=== PATIENT | female | born 1960 | race Caucasian/White ===

== ENCOUNTER → 2016-11-26 | Outpatient (CLI) | payer OTHER ==
[~2016-11-26] MED LIST: ASPI81CH CHEW; FURO20TA PO; HYZA100T2 PO; MULTTAB67 PO; NOVOLOGP2 SQ
[2016-11-26 10:02] LABS: ANION GAP 3 MEQ/L (5-15); BICARBONATE 37.9 MEQ/L (21.0-32.0); BLOOD UREA NITROGEN 18 MG/DL (7-18); CHLORIDE 101 MEQ/L (98-107); GLOMERULAR FILTRATION RATE 63 ML/MIN (>89); GLUCOSE,FASTING 74 MG/DL (74-99); POTASSIUM 3.5 MEQ/L (3.5-5.1); SODIUM (NA) 142 MEQ/L (136-145)
[2016-11-26 16:57] LABS: HEMOGLOBIN A1a 0.8 %; HEMOGLOBIN A1b 0.8 %; HEMOGLOBIN Ao 82.8 %; HEMOGLOBIN F 1.1 %; HEMOGLOBIN P3 4.3 %
== END ==
LOC: CLAB 09:10
DX: E10.65 Type 1 diabetes mellitus with hyperglycemia (principal)
CPT/HCPCS: 36415; 80048; 83036

== ENCOUNTER → 2017-02-06 | Outpatient (CLI) | payer OTHER ==
[2017-02-06 10:53] LABS: ALKALINE PHOSPHATASE 66 U/L (45-117); ALT (GPT) 35 U/L (10-53); ANION GAP 8 MEQ/L (5-15); AST (GOT) 19 U/L (15-37); BLOOD UREA NITROGEN 21 MG/DL (7-18); CHLORIDE 104 MEQ/L (98-107); GLOMERULAR FILTRATION RATE 84 ML/MIN (>89); GLUCOSE,FASTING 156 MG/DL (74-99); HDL CHOLESTEROL 83.8 MG/DL (40.0-60.0); LDL CHOLESTEROL 33 MG/DL (0-99); POTASSIUM 3.9 MEQ/L (3.5-5.1); SODIUM (NA) 144 MEQ/L (136-145); TOTAL BILIRUBIN ADULT 0.4 MG/DL (0.2-1.0)
[2017-02-06 14:20] LABS: HEMOGLOBIN A1a 1.1 %; HEMOGLOBIN A1b 1.9 %; HEMOGLOBIN Ao 81.8 %; HEMOGLOBIN LA1C 2.8 %; HEMOGLOBIN P3 4.5 %
== END ==
LOC: CLAB 09:26
PROVIDERS: ATTEND Internal Medicine
DX: I25.10 Atherosclerotic heart disease of native coronary artery without angina pectoris (principal); E10.9 Type 1 diabetes mellitus without complications; I10 Essential (primary) hypertension
CPT/HCPCS: 36415; 80053; 80061; 83036; 84443

== ENCOUNTER → 2017-08-04 | Outpatient (CLI) | payer OTHER ==
[~2017-08-04] MED LIST changes: +ASPI-516 CHEW; -ASPI81CH CHEW; +LIPI40TA PO
[2017-08-04 07:41] LABS: BICARBONATE 32.5 MEQ/L (21.0-32.0); POTASSIUM 3.6 MEQ/L (3.5-5.1)
== END ==
LOC: CLAB 06:41
DX: E10.65 Type 1 diabetes mellitus with hyperglycemia (principal)
CPT/HCPCS: 36415; 80048

== ENCOUNTER → 2017-10-28 | Outpatient (CLI) | payer OTHER ==
[2017-10-28 09:00] LABS: ALBUMIN 3.8 GM/DL (3.4-5.0); AST (GOT) 17 U/L (15-37); BICARBONATE 32.8 MEQ/L (21.0-32.0); BLOOD UREA NITROGEN 24 MG/DL (7-18); CALCIUM 9.4 MG/DL (8.5-10.1); CHLORIDE 101 MEQ/L (98-107); CREATININE 0.83 MG/DL (0.50-1.00); GLOMERULAR FILTRATION RATE 71 ML/MIN (>89); GLUCOSE,FASTING 151 MG/DL (74-99); SODIUM (NA) 140 MEQ/L (136-145)
[2017-10-28 09:01] LABS: ALT (GPT) 26 U/L (10-53)
[2017-10-28 09:27] LABS: ALKALINE PHOSPHATASE 64 U/L (45-117); FREE T4 1.08 NG/DL (0.76-1.46); TOTAL BILIRUBIN ADULT 0.6 MG/DL (0.2-1.0); TOTAL PROTEIN 6.9 GM/DL (6.4-8.2)
[2017-10-28 16:16] LABS: HEMOGLOBIN A1C 8.5 % (4.3-6.0)
== END ==
LOC: CLAB 07:22
PROVIDERS: ATTEND Internal Medicine Endocrinology, Diabetes & Metabolism
DX: E10.65 Type 1 diabetes mellitus with hyperglycemia (principal); D51.9 Vitamin B12 deficiency anemia, unspecified
CPT/HCPCS: 36415; 80053; 82043; 82607; 83036; 84378; 84439; 84443

== ENCOUNTER → 2018-01-26 | Outpatient (CLI) | payer OTHER ==
[2018-01-26 09:07] LABS: BICARBONATE 33.2 MEQ/L (21.0-32.0); BLOOD UREA NITROGEN 25 MG/DL (7-18); CALCIUM 8.8 MG/DL (8.5-10.1); CHLORIDE 106 MEQ/L (98-107); CREATININE 0.92 MG/DL (0.50-1.00); GLOMERULAR FILTRATION RATE 63 ML/MIN (>89); GLUCOSE,FASTING 100 MG/DL (74-99); SODIUM (NA) 144 MEQ/L (136-145)
[2018-01-26 16:25] LABS: HEMOGLOBIN A1C 7.3 % (4.3-6.0)
== END ==
LOC: CLAB 08:16
PROVIDERS: ATTEND Internal Medicine Endocrinology, Diabetes & Metabolism
DX: E10.65 Type 1 diabetes mellitus with hyperglycemia (principal)
CPT/HCPCS: 36415; 80048; 83036; 84378

== ENCOUNTER → 2018-03-10 | Outpatient (CLI) | payer OTHER ==
[2018-03-10 07:58] LABS: AUTOMATED NEUTROPHIL # 2.3 TH/MM3 (1.8-7.7); BASOPHIL % 0.7 % (0.0-2.0); EOSINOPHIL # 0.1 TH/MM3 (0-0.4); EOSINOPHIL % 1.9 % (0.0-4.0); HEMATOCRIT 44.2 % (35.0-46.0); LYMPH % 37.2 % (9.0-44.0); LYMPHOCYTE # 1.6 TH/MM3 (1.0-4.8); MEAN CELL VOLUME 84.6 FL (80.0-100.0); MEAN CORPUSCULAR HEMOGLOBIN 28.8 PG (27.0-34.0); MEAN PLATELET VOLUME 10.5 FL (7.0-11.0); MONO % 7.5 % (0.0-8.0); MONOCYTE # 0.3 TH/MM3 (0-0.9); NEUT % 52.7 % (16.0-70.0); PLATELET COUNT 181 TH/MM3 (150-450); RED BLOOD COUNT 5.23 MIL/MM3 (4.00-5.30); RED CELL DISTRIBUTION WIDTH 13.1 % (11.6-17.2); WHITE BLOOD COUNT 4.3 TH/MM3 (4.0-11.0)
[2018-03-10 08:16] LABS: BILIRUBIN, URINE NEG (NEG); BLOOD, URINE NEG (NEG); GLUCOSE,URINE NEG (NEG); HYALINE CAST, URINE 4 /lpf (RARE); KETONE, URINE TRACE mg/dL (NEG); MUCUS URINE MOD /lpf (OCC); NITRITE,URINE NEG (NEG); SQUAMOUS EPITHELIAL CELL URINE 2 /hpf (0-5); URINE COLOR YELLOW (YELLW/STRAW); URINE LEUKOCYTE ESTERASE TRACE (NEG)
[2018-03-10 08:25] LABS: ALBUMIN 3.9 GM/DL (3.4-5.0); AST (GOT) 22 U/L (15-37); BICARBONATE 32.2 MEQ/L (21.0-32.0); BLOOD UREA NITROGEN 19 MG/DL (7-18); CALCIUM 9.2 MG/DL (8.5-10.1); CHLORIDE 100 MEQ/L (98-107); CREATININE 0.96 MG/DL (0.50-1.00); GLOMERULAR FILTRATION RATE 60 ML/MIN (>89); GLUCOSE,FASTING 87 MG/DL (74-99); SODIUM (NA) 141 MEQ/L (136-145)
[2018-03-10 08:26] LABS: ALT (GPT) 26 U/L (10-53); CHOLESTEROL 141 MG/DL (120-200); TRIGLYCERIDES 52 MG/DL (42-150)
[2018-03-10 08:36] LABS: ALKALINE PHOSPHATASE 67 U/L (45-117); CHOLESTEROL/ HDL RATIO 1.91 RATIO; HDL CHOLESTEROL 73.8 MG/DL (40.0-60.0); LDL CHOLESTEROL 57 MG/DL (0-99); TOTAL BILIRUBIN ADULT 0.5 MG/DL (0.2-1.0); TOTAL PROTEIN 6.9 GM/DL (6.4-8.2)
[2018-03-10 18:03] LABS: HEMOGLOBIN A1C 6.6 % (4.3-6.0)
== END ==
LOC: CLAB 07:27
PROVIDERS: ATTEND Internal Medicine
DX: E78.00 Pure hypercholesterolemia, unspecified (principal); I25.10 Atherosclerotic heart disease of native coronary artery without angina pectoris; I10 Essential (primary) hypertension; E10.65 Type 1 diabetes mellitus with hyperglycemia
CPT/HCPCS: 36415; 80053; 80061; 81001; 82043; 83036; 84378; 84443; 85025

== ENCOUNTER 2018-07-30 13:29 | Observation (INO) ==
--- NOTE | 2018-07-30 14:38 | XR ---
EXAM DATE: 07/30/2018 2:23 PM EST AGE/SEX: 57 years / Female INDICATIONS: Chest pain and shortness of breath. CLINICAL DATA: This is the patient's initial encounter. Patient reports that signs and symptoms have been present for 1 day and indicates a pain score of 5/10. MEDICAL/SURGICAL HISTORY: . Diabetes mellitus type II. . section. Cardiac stent x 3 COMPARISON: [facility] [place], CHEST SINGLE AP, 09/07/2016. . FINDINGS: A single AP view of the chest demonstrates the lungs to be symmetrically aerated without evidence of mass, infiltrate or effusion. The cardiomediastinal contours are unremarkable. Osseous structures a re intact. CONCLUSION: 1. No acute cardiopulmonary disease. Electronically signed by: Severino Gatica MD 07/30/2018 2:37 PM EST
--- NOTE | 2018-07-30 16:52 | ED ---
HPI General Chief Complaint: Chest Pain Stated Complaint: Chest Pressure/Shoulder Pain/Weakness Complaint Time Seen by Provider: 07/30/18 16:22 Source: patient Mode of arrival: ambulatory Limitations: no limitations History of Present Illness HPI narrative: 57-year-old female with PMH of type I DM with implanted insulin pump, CAD status post stenting x3, HTN presents the ED for evaluation of 6/10 anterior chest heaviness and palpitations. Patient states the sensation radiates between the shoulder blades. She also endorses sensation of pulsations in the neck with dull global headache. Headache now resolved. She states these symptoms came on gradually during the course the day. She states that she was feeling completely normal at bedtime last night. She states her blood glucose was "normal" this morning but over the course of the day has gradually risen into the low 300s. She denies dizziness, vision changes, shortness of breath, cough, abdominal pain, changes in bowel habits, dysuria, lower extremity edema. She endorses compliance with her daily medications including an 81 mg aspirin. She states that she walked a total of approximately 2 miles during the course of her normal day today. 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 No treatment attempted before arrival. She is a non-smoker. She denies recent history of immobilization. She does not use OC. She is followed by Dr. Henao, cardiology. Related Data Home Medications Medication Instructions Recorded Confirmed atorvastatin [Lipitor] 40 mg PO DAILY 07/30/18 07/30/18 furosemide [Lasix] 20 mg PO DAILY 07/30/18 07/30/18 insulin aspart U-100 [Novolog 1 sliding scale dose SUBCUT UD 07/30/18 07/30/18 U-100 Insulin aspart] losartan-hydrochlorothiazide 1 tab PO DAILY 07/30/18 07/30/18 [Hyzaar] Allergies Allergy/AdvReac Type Severity Reaction Status Date / Time No Known Allergies Allergy Verified 07/30/18 16:17 Review of Systems ROS: all other systems reviewed are negative [facility] Medical History Medical History CHF (congestive heart failure) (Acute) Diabetes (Acute) HTN (hypertension) (Acute) Surgical History Surgical History H/O heart artery stent (Acute) Stented coronary artery (Acute) Social History Social History Substance History: No History of Abuse Second Hand Smoke Exposure: No Smoking Status: Never smoker Tobacco Type: Cigarettes How Often Do You Have a Drink Containing Alcohol: 2 to 3 times a week Recent Travel in [facility] within the Last 8 Weeks: No Recent Out of Country Travel within the Last 8 Weeks: No Immunization History Tetanus Immunization: Unsure Exam Narrative Exam Narrative: GENERAL: Well-nourished, well-developed, pleasant white female no acute distress. SKIN: Focused skin assessment warm/dry. HEAD: Atraumatic. Normocephalic. EYES: Pupils equal and round. No scleral icterus. No injection or drainage. ENT: No nasal bleeding or discharge. Mucous membranes pink and moist. NECK: Trachea midline. No JVD. CARDIOVASCULAR: Regular rate and rhythm. No murmur appreciated. RESPIRATORY: No accessory muscle use. Clear to auscultation. Breath sounds equal bilaterally. GASTROINTESTINAL: Abdomen soft, non-tender, nondistended. Hepatic and splenic margins not palpable. MUSCULOSKELETAL: No obvious deformities. No clubbing. No cyanosis. No edema. NEUROLOGICAL: Awake and alert. No obvious cranial nerve deficits. Motor grossly within normal limits. Normal speech. PSYCHIATRIC: Appropriate mood and affect; insight and judgment normal. Course Reevaluation(s) Reevaluation #1: On recheck patient states that she just "threw up my entire lunch." She reports some improvement of her symptoms. She does not feel nauseated at this time. She reports blood glucose of ~700 on her pump. She administered 10 u insulin. Time: 20:42 Initial Documented Vital Signs Temperature 98.3 F 07/30/18 14:03 Pulse Rate 100 H 07/30/18 14:03 Respiratory Rate 18 07/30/18 14:03 Blood Pressure 119/56 L 07/30/18 14:03 Pulse Oximetry 100 07/30/18 14:03 Last Documented Vital Signs Temperature 98.5 F 08/02/18 11:23 Pulse Rate 57 L 08/02/18 11:23 Respiratory Rate 18 08/02/18 11:23 Blood Pressure 137/65 08/02/18 11:23 Pulse Oximetry 95 08/02/18 16:02 Medical Decision Making GUILLERMINA Attestation GUILLERMINA supervised visit: Yes Attestation: I, Dr. Murrieta, have reviewed the advance practice practitioner's documentation and am in agreement, met with the patient face to face, made the diagnosis, and the medical decision making was done by me. *My assessment and Findings: Chest pain MDM Narrative Medical decision making narrative: 57-year-old female with PMH of type I DM with implanted insulin pump, CAD status post stenting x3, HTN presents the ED for evaluation of 6/10 anterior chest heaviness and palpitations. Patient states the sensation radiates between the shoulder blades. She also endorses sensation of pulsations in the neck with dull global headache. Headache now resolved. Also states that her blood pressure was normal this morning but now in the 300s. Pulse of 100, BP 119/56 on presentation. No appreciable M/R/G. No focal neuro deficits noted. IV was established. Patient was placed on continuous cardiac monitoring. She was administered a liter of normal saline. EKG without acute changes. Cardiac enzymes negative x1. CT of the brain without acute findings. Basic lab work with leukocytosis of 18.5. Blood glucose 355. D-dimer negative. UA without evidence of UTI. On recheck patient remains tachycardic. She also reports of episode of vomiting, denies any nausea. CTA of the chest and carotids without acute findings. Patient remains tachycardic, repeat CBC with leukocytosis of 16.0. Plan to admit for observation, rule out ACS. I spoke with Dr. Arango who agrees to accept the patient. Please see medicine notes for disposition. Medical Screen Exam Complete: Yes Emergency Medical Condition: Yes Differential Diagnosis Differential Diagnosis: Dysrhythmia versus ACS versus ICH versus metabolic derangement versus HHUS versus other Lab Data Result diagrams: 08/02/18 03:40 08/02/18 03:40 Lab Results 07/30/18 07/30/18 07/30/18 Range/Units 16:50 16:50 16:50 WBC 18.4 H (4.0-11.0) th/mm3 RBC 5.26 (4.00-5.30) mil/mm3 Hgb 15.6 H (11.6-15.3) gm/dL Hct 46.3 H (35.0-46.0) % MCV 87.9 (80.0-100.0) fL MCH 29.7 (27.0-34.0) pg MCHC 33.8 (32.0-36.0) % RDW 13.4 (11.6-17.2) % Plt Count 191 (150-450) th/mm3 MPV 11.8 H (7.0-11.0) fL Neut % (Auto) 85.8 H (16.0-70.0) % Lymph % (Auto) 8.1 L (9.0-44.0) % [place] % (Auto) 5.6 (0.0-8.0) % Eos % (Auto) 0.2 (0.0-4.0) % Baso % (Auto) 0.3 (0.0-2.0) % Neut # (Auto) 15.8 H (1.8-7.7) th/mm3 Lymph # (Auto) 1.5 (1.0-4.8) th/mm3 [place] # (Auto) 1.0 H (0.0-0.9) th/mm3 Eos # (Auto) 0.0 (0.0-0.4) th/mm3 Baso # (Auto) 0.0 (0.0-0.2) th/mm3 WBC Differential . Differential Comment Auto diff final PT (9.8-11.6) sec INR Ratio APTT (23.4-31.7) sec D-Dimer Quant (PE/DVT) 0.40 (0.00-0.50) mg/L FEU Sodium 140 (136-145) meq/L Potassium 4.3 (3.5-5.1) meq/L Chloride 97 L (98-107) meq/L Carbon Dioxide 29.0 (21.0-32.0) meq/L Anion Gap 14 (5-15) meq/L BUN 36 H (7-18) mg/dL Creatinine 1.12 H (0.50-1.00) mg/dL Estimated GFR 50 L (>89) mL/min POC Glucose (68-110) mg/dl Random Glucose 355 H (74-106) mg/dL Hemoglobin A1c (4.3-6.0) % Calcium 9.3 (8.5-10.1) mg/dL Total Bilirubin 0.8 (0.2-1.0) mg/dL AST 27 (15-37) U/L ALT 32 (10-53) U/L Alkaline Phosphatase 74 (45-117) U/L Total Creatine Kinase (26-192) U/L Troponin I Less than 0.02 L (0.02-0.05) ng/mL B-Natriuretic Peptide (0-100) pg/mL Total Protein 7.6 (6.4-8.2) g/dL Albumin 4.4 (3.4-5.0) g/dL Triglycerides (42-150) mg/dL Cholesterol (120-200) mg/dL LDL Cholesterol, Calc (0-99) mg/dL HDL Cholesterol (40.0-60.0) mg/dL Cholesterol/HDL Ratio Ratio TSH (0.358-3.740) uIU/mL Beta HCG, Quant (0-5) mIU/mL Urine Color (Yellw/Straw) Urine Clarity (Clear) Urine pH (5.0-8.5) Ur Specific [place] (1.002-1.035) Urine Protein (Neg-Trace) mg/dL Urine Glucose (UA) (Negative) mg/dL Urine Ketones (Negative) mg/dL Urine Occult Blood (Negative) Urine Nitrate (Negative) Urine Bilirubin (Negative) Urine Urobilinogen (Less than 2) mg/dL Ur Leukocyte Esterase (Negative) Urine RBC (0-3) /hpf Urine WBC (0-5) /hpf Ur Squamous Epith Cells (0-5) /hpf Hyaline Casts (0-3) /lpf Urine Mucus (Occasional) /lpf Ur Microscopic Review 07/30/18 07/30/18 07/30/18 Range/Units 18:28 20:35 20:35 WBC 16.0 H (4.0-11.0) th/mm3 RBC 4.88 (4.00-5.30) mil/mm3 Hgb 13.8 (11.6-15.3) gm/dL Hct 42.8 (35.0-46.0) % MCV 87.8 (80.0-100.0) fL MCH 28.3 (27.0-34.0) pg MCHC 32.3 (32.0-36.0) % RDW 13.6 (11.6-17.2) % Plt Count 184 (150-450) th/mm3 MPV 11.3 H (7.0-11.0) fL Neut % (Auto) 88.5 H (16.0-70.0) % Lymph % (Auto) 6.3 L (9.0-44.0) % [place] % (Auto) 5.0 (0.0-8.0) % Eos % (Auto) 0.0 (0.0-4.0) % Baso % (Auto) 0.2 (0.0-2.0) % Neut # (Auto) 14.2 H (1.8-7.7) th/mm3 Lymph # (Auto) 1.0 (1.0-4.8) th/mm3 [place] # (Auto) 0.8 (0.0-0.9) th/mm3 Eos # (Auto) 0.0 (0.0-0.4) th/mm3 Baso # (Auto) 0.0 (0.0-0.2) th/mm3 WBC Differential . Differential Comment Auto diff final PT (9.8-11.6) sec INR Ratio APTT (23.4-31.7) sec D-Dimer Quant (PE/DVT) (0.00-0.50) mg/L FEU Sodium (136-145) meq/L Potassium (3.5-5.1) meq/L Chloride (98-107) meq/L Carbon Dioxide (21.0-32.0) meq/L Anion Gap (5-15) meq/L BUN (7-18) mg/dL Creatinine (0.50-1.00) mg/dL Estimated GFR (>89) mL/min POC Glucose (68-110) mg/dl Random Glucose (74-106) mg/dL Hemoglobin A1c (4.3-6.0) % Calcium (8.5-10.1) mg/dL Total Bilirubin (0.2-1.0) mg/dL AST (15-37) U/L ALT (10-53) U/L Alkaline Phosphatase (45-117) U/L Total Creatine Kinase (26-192) U/L Troponin I (0.02-0.05) ng/mL B-Natriuretic Peptide 42 (0-100) pg/mL Total Protein (6.4-8.2) g/dL Albumin (3.4-5.0) g/dL Triglycerides (42-150) mg/dL Cholesterol (120-200) mg/dL LDL Cholesterol, Calc (0-99) mg/dL HDL Cholesterol (40.0-60.0) mg/dL Cholesterol/HDL Ratio Ratio TSH (0.358-3.740) uIU/mL Beta HCG, Quant (0-5) mIU/mL Urine Color Yellow (Yellw/Straw) Urine Clarity Clear (Clear) Urine pH 5.0 (5.0-8.5) Ur Specific [place] 1.013 (1.002-1.035) Urine Protein Negative (Neg-Trace) mg/dL Urine Glucose (UA) 500 or greater (Negative) mg/dL Urine Ketones 80 or greater H (Negative) mg/dL Urine Occult Blood Negative (Negative) Urine Nitrate Negative (Negative) Urine Bilirubin Negative (Negative) Urine Urobilinogen Less than 2 (Less than 2) mg/dL Ur Leukocyte Esterase Negative (Negative) Urine RBC Less than 1 (0-3) /hpf Urine WBC Less than 1 (0-5) /hpf Ur Squamous Epith Cells <1 (0-5) /hpf Hyaline Casts 4 (0-3) /lpf Urine Mucus Few H (Occasional) /lpf Ur Microscopic Review Not Reportable 07/30/18 07/30/18 07/31/18 Range/Units 22:00 22:04 03:10 WBC (4.0-11.0) th/mm3 RBC (4.00-5.30) mil/mm3 Hgb (11.6-15.3) gm/dL Hct (35.0-46.0) % MCV (80.0-100.0) fL MCH (27.0-34.0) pg MCHC (32.0-36.0) % RDW (11.6-17.2) % Plt Count (150-450) th/mm3 MPV (7.0-11.0) fL Neut % (Auto) (16.0-70.0) % Lymph % (Auto) (9.0-44.0) % [place] % (Auto) (0.0-8.0) % Eos % (Auto) (0.0-4.0) % Baso % (Auto) (0.0-2.0) % Neut # (Auto) (1.8-7.7) th/mm3 Lymph # (Auto) (1.0-4.8) th/mm3 [place] # (Auto) (0.0-0.9) th/mm3 Eos # (Auto) (0.0-0.4) th/mm3 Baso # (Auto) (0.0-0.2) th/mm3 WBC Differential Differential Comment PT (9.8-11.6) sec INR Ratio APTT (23.4-31.7) sec D-Dimer Quant (PE/DVT) (0.00-0.50) mg/L FEU Sodium 141 (136-145) meq/L Potassium 3.7 (3.5-5.1) meq/L Chloride 104 (98-107) meq/L Carbon Dioxide 28.8 (21.0-32.0) meq/L Anion Gap 8 (5-15) meq/L BUN 33 H (7-18) mg/dL Creatinine 1.03 H (0.50-1.00) mg/dL Estimated GFR 55 L (>89) mL/min POC Glucose 353 H (68-110) mg/dl Random Glucose 171 H D (74-106) mg/dL Hemoglobin A1c (4.3-6.0) % Calcium 8.2 L D (8.5-10.1) mg/dL Total Bilirubin 0.4 (0.2-1.0) mg/dL AST 18 (15-37) U/L ALT 26 (10-53) U/L Alkaline Phosphatase 57 (45-117) U/L Total Creatine Kinase 119 (26-192) U/L Troponin I Less than 0.02 L 0.10 H (0.02-0.05) ng/mL B-Natriuretic Peptide (0-100) pg/mL Total Protein 5.6 L D (6.4-8.2) g/dL Albumin 3.1 L D (3.4-5.0) g/dL Triglycerides 38 L (42-150) mg/dL Cholesterol 106 L (120-200) mg/dL LDL Cholesterol, Calc 24 (0-99) mg/dL HDL Cholesterol 74.7 H (40.0-60.0) mg/dL Cholesterol/HDL Ratio 1.41 Ratio TSH 0.309 L (0.358-3.740) uIU/mL Beta HCG, Quant (0-5) mIU/mL Urine Color (Yellw/Straw) Urine Clarity (Clear) Urine pH (5.0-8.5) Ur Specific [place] (1.002-1.035) Urine Protein (Neg-Trace) mg/dL Urine Glucose (UA) (Negative) mg/dL Urine Ketones (Negative) mg/dL Urine Occult Blood (Negative) Urine Nitrate (Negative) Urine Bilirubin (Negative) Urine Urobilinogen (Less than 2) mg/dL Ur Leukocyte Esterase (Negative) Urine RBC (0-3) /hpf Urine WBC (0-5) /hpf Ur Squamous Epith Cells (0-5) /hpf Hyaline Casts (0-3) /lpf Urine Mucus (Occasional) /lpf Ur Microscopic Review 07/31/18 07/31/18 07/31/18 Range/Units 04:00 04:00 05:30 WBC 11.9 H (4.0-11.0) th/mm3 RBC 4.24 (4.00-5.30) mil/mm3 Hgb 12.2 (11.6-15.3) gm/dL Hct 36.7 (35.0-46.0) % MCV 86.5 (80.0-100.0) fL MCH 28.8 (27.0-34.0) pg MCHC 33.3 (32.0-36.0) % RDW 13.6 (11.6-17.2) % Plt Count 164 (150-450) th/mm3 MPV 10.4 (7.0-11.0) fL Neut % (Auto) 78.2 H (16.0-70.0) % Lymph % (Auto) 13.0 (9.0-44.0) % [place] % (Auto) 8.0 (0.0-8.0) % Eos % (Auto) 0.1 (0.0-4.0) % Baso % (Auto) 0.7 (0.0-2.0) % Neut # (Auto) 9.3 H (1.8-7.7) th/mm3 Lymph # (Auto) 1.5 (1.0-4.8) th/mm3 [place] # (Auto) 0.9 (0.0-0.9) th/mm3 Eos # (Auto) 0.0 (0.0-0.4) th/mm3 Baso # (Auto) 0.1 (0.0-0.2) th/mm3 WBC Differential . Differential Comment Auto diff final PT (9.8-11.6) sec INR Ratio APTT (23.4-31.7) sec D-Dimer Quant (PE/DVT) (0.00-0.50) mg/L FEU Sodium (136-145) meq/L Potassium (3.5-5.1) meq/L Chloride (98-107) meq/L Carbon Dioxide (21.0-32.0) meq/L Anion Gap (5-15) meq/L BUN (7-18) mg/dL Creatinine (0.50-1.00) mg/dL Estimated GFR (>89) mL/min POC Glucose (68-110) mg/dl Random Glucose (74-106) mg/dL Hemoglobin A1c 7.4 H (4.3-6.0) % Calcium (8.5-10.1) mg/dL Total Bilirubin (0.2-1.0) mg/dL AST (15-37) U/L ALT (10-53) U/L Alkaline Phosphatase (45-117) U/L Total Creatine Kinase (26-192) U/L Troponin I 0.13 H (0.02-0.05) ng/mL B-Natriuretic Peptide (0-100) pg/mL Total Protein (6.4-8.2) g/dL Albumin (3.4-5.0) g/dL Triglycerides (42-150) mg/dL Cholesterol (120-200) mg/dL LDL Cholesterol, Calc (0-99) mg/dL HDL Cholesterol (40.0-60.0) mg/dL Cholesterol/HDL Ratio Ratio TSH (0.358-3.740) uIU/mL Beta HCG, Quant (0-5) mIU/mL Urine Color (Yellw/Straw) Urine Clarity (Clear) Urine pH (5.0-8.5) Ur Specific [place] (1.002-1.035) Urine Protein (Neg-Trace) mg/dL Urine Glucose (UA) (Negative) mg/dL Urine Ketones (Negative) mg/dL Urine Occult Blood (Negative) Urine Nitrate (Negative) Urine Bilirubin (Negative) Urine Urobilinogen (Less than 2) mg/dL Ur Leukocyte Esterase (Negative) Urine RBC (0-3) /hpf Urine WBC (0-5) /hpf Ur Squamous Epith Cells (0-5) /hpf Hyaline Casts (0-3) /lpf Urine Mucus (Occasional) /lpf Ur Microscopic Review 07/31/18 07/31/18 07/31/18 Range/Units 07:38 12:59 16:51 WBC (4.0-11.0) th/mm3 RBC (4.00-5.30) mil/mm3 Hgb (11.6-15.3) gm/dL Hct (35.0-46.0) % MCV (80.0-100.0) fL MCH (27.0-34.0) pg MCHC (32.0-36.0) % RDW (11.6-17.2) % Plt Count (150-450) th/mm3 MPV (7.0-11.0) fL Neut % (Auto) (16.0-70.0) % Lymph % (Auto) (9.0-44.0) % [place] % (Auto) (0.0-8.0) % Eos % (Auto) (0.0-4.0) % Baso % (Auto) (0.0-2.0) % Neut # (Auto) (1.8-7.7) th/mm3 Lymph # (Auto) (1.0-4.8) th/mm3 [place] # (Auto) (0.0-0.9) th/mm3 Eos # (Auto) (0.0-0.4) th/mm3 Baso # (Auto) (0.0-0.2) th/mm3 WBC Differential Differential Comment PT (9.8-11.6) sec INR Ratio APTT (23.4-31.7) sec D-Dimer Quant (PE/DVT) (0.00-0.50) mg/L FEU Sodium (136-145) meq/L Potassium (3.5-5.1) meq/L Chloride (98-107) meq/L Carbon Dioxide (21.0-32.0) meq/L Anion Gap (5-15) meq/L BUN (7-18) mg/dL Creatinine (0.50-1.00) mg/dL Estimated GFR (>89) mL/min POC Glucose 87 164 H 170 H (68-110) mg/dl Random Glucose (74-106) mg/dL Hemoglobin A1c (4.3-6.0) % Calcium (8.5-10.1) mg/dL Total Bilirubin (0.2-1.0) mg/dL AST (15-37) U/L ALT (10-53) U/L Alkaline Phosphatase (45-117) U/L Total Creatine Kinase (26-192) U/L Troponin I (0.02-0.05) ng/mL B-Natriuretic Peptide (0-100) pg/mL Total Protein (6.4-8.2) g/dL Albumin (3.4-5.0) g/dL Triglycerides (42-150) mg/dL Cholesterol (120-200) mg/dL LDL Cholesterol, Calc (0-99) mg/dL HDL Cholesterol (40.0-60.0) mg/dL Cholesterol/HDL Ratio Ratio TSH (0.358-3.740) uIU/mL Beta HCG, Quant (0-5) mIU/mL Urine Color (Yellw/Straw) Urine Clarity (Clear) Urine pH (5.0-8.5) Ur Specific [place] (1.002-1.035) Urine Protein (Neg-Trace) mg/dL Urine Glucose (UA) (Negative) mg/dL Urine Ketones (Negative) mg/dL Urine Occult Blood (Negative) Urine Nitrate (Negative) Urine Bilirubin (Negative) Urine Urobilinogen (Less than 2) mg/dL Ur Leukocyte Esterase (Negative) Urine RBC (0-3) /hpf Urine WBC (0-5) /hpf Ur Squamous Epith Cells (0-5) /hpf Hyaline Casts (0-3) /lpf Urine Mucus (Occasional) /lpf Ur Microscopic Review 07/31/18 08/01/18 08/01/18 Range/Units 20:01 08:17 11:40 WBC (4.0-11.0) th/mm3 RBC (4.00-5.30) mil/mm3 Hgb (11.6-15.3) gm/dL Hct (35.0-46.0) % MCV (80.0-100.0) fL MCH (27.0-34.0) pg MCHC (32.0-36.0) % RDW (11.6-17.2) % Plt Count (150-450) th/mm3 MPV (7.0-11.0) fL Neut % (Auto) (16.0-70.0) % Lymph % (Auto) (9.0-44.0) % [place] % (Auto) (0.0-8.0) % Eos % (Auto) (0.0-4.0) % Baso % (Auto) (0.0-2.0) % Neut # (Auto) (1.8-7.7) th/mm3 Lymph # (Auto) (1.0-4.8) th/mm3 [place] # (Auto) (0.0-0.9) th/mm3 Eos # (Auto) (0.0-0.4) th/mm3 Baso # (Auto) (0.0-0.2) th/mm3 WBC Differential Differential Comment PT (9.8-11.6) sec INR Ratio APTT (23.4-31.7) sec D-Dimer Quant (PE/DVT) (0.00-0.50) mg/L FEU Sodium (136-145) meq/L Potassium (3.5-5.1) meq/L Chloride (98-107) meq/L Carbon Dioxide (21.0-32.0) meq/L Anion Gap (5-15) meq/L BUN (7-18) mg/dL Creatinine (0.50-1.00) mg/dL Estimated GFR (>89) mL/min POC Glucose 158 H 108 (68-110) mg/dl Random Glucose (74-106) mg/dL Hemoglobin A1c (4.3-6.0) % Calcium (8.5-10.1) mg/dL Total Bilirubin (0.2-1.0) mg/dL AST (15-37) U/L ALT (10-53) U/L Alkaline Phosphatase (45-117) U/L Total Creatine Kinase (26-192) U/L Troponin I 0.14 H (0.02-0.05) ng/mL B-Natriuretic Peptide (0-100) pg/mL Total Protein (6.4-8.2) g/dL Albumin (3.4-5.0) g/dL Triglycerides (42-150) mg/dL Cholesterol (120-200) mg/dL LDL Cholesterol, Calc (0-99) mg/dL HDL Cholesterol (40.0-60.0) mg/dL Cholesterol/HDL Ratio Ratio TSH (0.358-3.740) uIU/mL Beta HCG, Quant (0-5) mIU/mL Urine Color (Yellw/Straw) Urine Clarity (Clear) Urine pH (5.0-8.5) Ur Specific [place] (1.002-1.035) Urine Protein (Neg-Trace) mg/dL Urine Glucose (UA) (Negative) mg/dL Urine Ketones (Negative) mg/dL Urine Occult Blood (Negative) Urine Nitrate (Negative) Urine Bilirubin (Negative) Urine Urobilinogen (Less than 2) mg/dL Ur Leukocyte Esterase (Negative) Urine RBC (0-3) /hpf Urine WBC (0-5) /hpf Ur Squamous Epith Cells (0-5) /hpf Hyaline Casts (0-3) /lpf Urine Mucus (Occasional) /lpf Ur Microscopic Review 08/01/18 08/01/18 08/02/18 Range/Units 17:24 22:12 03:40 WBC 5.1 (4.0-11.0) th/mm3 RBC 4.22 (4.00-5.30) mil/mm3 Hgb 12.3 (11.6-15.3) gm/dL Hct 36.1 (35.0-46.0) % MCV 85.6 (80.0-100.0) fL MCH 29.3 (27.0-34.0) pg MCHC 34.2 (32.0-36.0) % RDW 13.5 (11.6-17.2) % Plt Count 133 L (150-450) th/mm3 MPV 9.9 (7.0-11.0) fL Neut % (Auto) 45.2 (16.0-70.0) % Lymph % (Auto) 42.8 (9.0-44.0) % [place] % (Auto) 8.5 H (0.0-8.0) % Eos % (Auto) 3.1 (0.0-4.0) % Baso % (Auto) 0.4 (0.0-2.0) % Neut # (Auto) 2.3 (1.8-7.7) th/mm3 Lymph # (Auto) 2.2 (1.0-4.8) th/mm3 [place] # (Auto) 0.4 (0.0-0.9) th/mm3 Eos # (Auto) 0.2 (0.0-0.4) th/mm3 Baso # (Auto) 0.0 (0.0-0.2) th/mm3 WBC Differential . Differential Comment Auto diff final PT (9.8-11.6) sec INR Ratio APTT (23.4-31.7) sec D-Dimer Quant (PE/DVT) (0.00-0.50) mg/L FEU Sodium (136-145) meq/L Potassium (3.5-5.1) meq/L Chloride (98-107) meq/L Carbon Dioxide (21.0-32.0) meq/L Anion Gap (5-15) meq/L BUN (7-18) mg/dL Creatinine (0.50-1.00) mg/dL Estimated GFR (>89) mL/min POC Glucose 63 L 130 H (68-110) mg/dl Random Glucose (74-106) mg/dL Hemoglobin A1c (4.3-6.0) % Calcium (8.5-10.1) mg/dL Total Bilirubin (0.2-1.0) mg/dL AST (15-37) U/L ALT (10-53) U/L Alkaline Phosphatase (45-117) U/L Total Creatine Kinase (26-192) U/L Troponin I (0.02-0.05) ng/mL B-Natriuretic Peptide (0-100) pg/mL Total Protein (6.4-8.2) g/dL Albumin (3.4-5.0) g/dL Triglycerides (42-150) mg/dL Cholesterol (120-200) mg/dL LDL Cholesterol, Calc (0-99) mg/dL HDL Cholesterol (40.0-60.0) mg/dL Cholesterol/HDL Ratio Ratio TSH (0.358-3.740) uIU/mL Beta HCG, Quant (0-5) mIU/mL Urine Color (Yellw/Straw) Urine Clarity (Clear) Urine pH (5.0-8.5) Ur Specific [place] (1.002-1.035) Urine Protein (Neg-Trace) mg/dL Urine Glucose (UA) (Negative) mg/dL Urine Ketones (Negative) mg/dL Urine Occult Blood (Negative) Urine Nitrate (Negative) Urine Bilirubin (Negative) Urine Urobilinogen (Less than 2) mg/dL Ur Leukocyte Esterase (Negative) Urine RBC (0-3) /hpf Urine WBC (0-5) /hpf Ur Squamous Epith Cells (0-5) /hpf Hyaline Casts (0-3) /lpf Urine Mucus (Occasional) /lpf Ur Microscopic Review 08/02/18 08/02/18 08/02/18 Range/Units 03:40 03:40 18:08 WBC (4.0-11.0) th/mm3 RBC (4.00-5.30) mil/mm3 Hgb (11.6-15.3) gm/dL Hct (35.0-46.0) % MCV (80.0-100.0) fL MCH (27.0-34.0) pg MCHC (32.0-36.0) % RDW (11.6-17.2) % Plt Count (150-450) th/mm3 MPV (7.0-11.0) fL Neut % (Auto) (16.0-70.0) % Lymph % (Auto) (9.0-44.0) % [place] % (Auto) (0.0-8.0) % Eos % (Auto) (0.0-4.0) % Baso % (Auto) (0.0-2.0) % Neut # (Auto) (1.8-7.7) th/mm3 Lymph # (Auto) (1.0-4.8) th/mm3 [place] # (Auto) (0.0-0.9) th/mm3 Eos # (Auto) (0.0-0.4) th/mm3 Baso # (Auto) (0.0-0.2) th/mm3 WBC Differential Differential Comment PT 10.4 (9.8-11.6) sec INR 1.0 Ratio APTT 26.6 (23.4-31.7) sec D-Dimer Quant (PE/DVT) (0.00-0.50) mg/L FEU Sodium 147 H (136-145) meq/L Potassium 3.9 (3.5-5.1) meq/L Chloride 111 H (98-107) meq/L Carbon Dioxide 28.9 (21.0-32.0) meq/L Anion Gap 7 (5-15) meq/L BUN 17 (7-18) mg/dL Creatinine 0.81 (0.50-1.00) mg/dL Estimated GFR 73 L (>89) mL/min POC Glucose 164 H (68-110) mg/dl Random Glucose 107 H (74-106) mg/dL Hemoglobin A1c (4.3-6.0) % Calcium 8.0 L (8.5-10.1) mg/dL Total Bilirubin (0.2-1.0) mg/dL AST (15-37) U/L ALT (10-53) U/L Alkaline Phosphatase (45-117) U/L Total Creatine Kinase (26-192) U/L Troponin I (0.02-0.05) ng/mL B-Natriuretic Peptide (0-100) pg/mL Total Protein (6.4-8.2) g/dL Albumin (3.4-5.0) g/dL Triglycerides (42-150) mg/dL Cholesterol (120-200) mg/dL LDL Cholesterol, Calc (0-99) mg/dL HDL Cholesterol (40.0-60.0) mg/dL Cholesterol/HDL Ratio Ratio TSH (0.358-3.740) uIU/mL Beta HCG, Quant 2 (0-5) mIU/mL Urine Color (Yellw/Straw) Urine Clarity (Clear) Urine pH (5.0-8.5) Ur Specific [place] (1.002-1.035) Urine Protein (Neg-Trace) mg/dL Urine Glucose (UA) (Negative) mg/dL Urine Ketones (Negative) mg/dL Urine Occult Blood (Negative) Urine Nitrate (Negative) Urine Bilirubin (Negative) Urine Urobilinogen (Less than 2) mg/dL Ur Leukocyte Esterase (Negative) Urine RBC (0-3) /hpf Urine WBC (0-5) /hpf Ur Squamous Epith Cells (0-5) /hpf Hyaline Casts (0-3) /lpf Urine Mucus (Occasional) /lpf Ur Microscopic Review Imaging Data Radiologist's impression: Chest X-Ray 07/30/18 14:09 CONCLUSION: 1. No acute cardiopulmonary disease. Head CT 07/30/18 16:45 CONCLUSION: 1. Negative CT Head non contrast. 2. No evidence of acute infarct, hemorrhage, mass or edema. . Chest CTA 07/30/18 19:02 CONCLUSION: Unremarkable study. Neck CTA 07/30/18 19:02 CONCLUSION: 1. Focal atherosclerotic plaque of the carotid bifurcations, mild on the right and trace on the left. No hemodynamically significant narrowing. 2. No dissection. ECG Data Attestation: I personally reviewed and interpreted this ECG as follows: Interpretation: Rate 101, sinus rhythm. [place] interval 148, QRS 132, QTc 434 ms. Normal axis. Left bundle branch block. No acute ST changes. Reviewed by Dr. Murrieta. Discharge Plan Discharge Disposition Patient Disposition: 30 Still Patient Discharge Condition Condition: Stable Discharge Order Discharge Orders: Discharge Order (Routine); Ordered 08/02/18 Ordered By: Valdez Barrera Discharge Details Anticipated Discharge Date: 08/02/18 Diagnosis: Chest pain Physicians Team ED Provider: Kamron Murrieta ED Midlevel Provider: María [place] Primary Care Provider: Lloyd Dutta Attending Provider: Melvin Dash Other Providers: Vangie Thomas Mark Discharge Interventions Interventions: ED Discharge Assessment Last Done: 07/30/18 23:16 Vital Signs Last Done: 07/30/18 14:03 Status ED Status: Left Department Discharge Information Discharge Date/Time: 07/30/18 23:16
[2018-07-30 17:08] LABS: Baso % (Auto) 0.3 % (0.0-2.0); Eos % (Auto) 0.2 % (0.0-4.0); Hematocrit 46.3 % (35.0-46.0); Hemoglobin 15.6 gm/dL (11.6-15.3); Lymph # (Auto) 1.5 th/mm3 (1.0-4.8); Lymph % (Auto) 8.1 % (9.0-44.0); Mean Corpuscular HGB Conc 33.8 % (32.0-36.0); Mean Corpuscular Hemoglobin 29.7 pg (27.0-34.0); Mean Corpuscular Volume 87.9 fL (80.0-100.0); Mean Platelet Volume 11.8 fL (7.0-11.0); Mono % (Auto) 5.6 % (0.0-8.0); Neut # (Auto) 15.8 th/mm3 (1.8-7.7); Neut % (Auto) 85.8 % (16.0-70.0); Platelet Count 191 th/mm3 (150-450); Red Blood Count 5.26 mil/mm3 (4.00-5.30); Red Cell Distribution Width 13.4 % (11.6-17.2); White Blood Count 18.4 th/mm3 (4.0-11.0)
[2018-07-30 17:32] LABS: Alkaline Phosphatase 74 U/L (45-117); Total Protein 7.6 g/dL (6.4-8.2)
[2018-07-30 17:35] LABS: Alanine Aminotransferase 32 U/L (10-53); Albumin 4.4 g/dL (3.4-5.0); Anion Gap 14 meq/L (5-15); Aspartate Aminotransferase 27 U/L (15-37); Blood Urea Nitrogen 36 mg/dL (7-18); Calcium 9.3 mg/dL (8.5-10.1); Chloride 97 meq/L (98-107); Glomerular Filtration Rate 50 mL/min (>89); Glucose,Random 355 mg/dL (74-106); Potassium 4.3 meq/L (3.5-5.1); Sodium 140 meq/L (136-145)
[2018-07-30] MEDS ORDERED: Sod Chloride 0.9% Inj 1,000 ML IV.SIG ONE (17:41)
--- NOTE | 2018-07-30 18:07 | CT ---
EXAM DATE: 07/30/2018 6:01 PM EST AGE/SEX: 57 years / Female INDICATIONS: Weakness. CLINICAL DATA: This is the patient's initial encounter. Patient reports that signs and symptoms have been present for 1 day and indicates a pain score of 0/10. MEDICAL/SURGICAL HISTORY: Diabetes. Hypertension. Congestive heart failure. . Coronary artery st ent. RADIATION DOSE: 36.96 CTDI (mGy) COMPARISON: No prior exams available for comparison. TECHNIQUE: CT of the head without contrast. Using automated exposure control and adjustment of the mA and/or kV according to patient size, radiation dose was kept as low as reasonably achievable to ob tain optimal diagnostic quality images. DICOM format image data is available electronically for revi ew and comparison. FINDINGS: Cerebrum: The ventricles are normal for age. No evidence of midline shift, mass lesion, hemorrhage or acute infarction. No extraaxial fluid collections are seen. Posterior Fossa: The cerebellum and brainstem are intact. The 4th ventricle is midline. The cerebe llopontine angle is unremarkable. Extracranial: The visualized portion of the orbits is intact. Skull: The calvaria is intact. No evidence of skull fracture. CONCLUSION: 1. Negative CT Head non contrast. 2. No evidence of acute infarct, hemorrhage, mass or edema. . Electronically signed by: Matt Wang MD 07/30/2018 6:05 PM EST
[2018-07-30 18:57] LABS: Bilirubin,Urine Negative (Negative); Clarity,Urine Clear (Clear); Color,Urine Yellow (Yellw/Straw); Glucose,Urine (UA) 500 or Greater mg/dL (Negative); Hyaline Casts,Urine 4 /lpf (0-3); Leukocyte Esterase,Urine Negative (Negative); Mucus,Urine Few /lpf (Occasional); Nitrite,Urine Negative (Negative); Specific Gravity,Urine 1.013 (1.002-1.035); Squamous Epithelial Cell,Urine <1 /hpf (0-5)
--- NOTE | 2018-07-30 19:56 | CT ---
EXAM DATE: 07/30/2018 7:50 PM EST AGE/SEX: 57 years / Female INDICATIONS: Chest pain. CLINICAL DATA: This is the patient's initial encounter. Patient reports that signs and symptoms have been present for 1 day and indicates a pain score of 6/10. MEDICAL/SURGICAL HISTORY: Congestive heart failure. Diabetes. Hypertension. None. RADIATION DOSE: 8.53 CTDI (mGy) COMPARISON: [facility] [place], CHEST 1V SINGLE AP, 07/30/2018. . TECHNIQUE: Volumetric scanning was performed using a multi-row detector CT scanner during bolus infu cherelle of 58 ml Omnipaque 350 (iohexol) nonionic water-soluble contrast as a single exam dose. The thaddeus a was post processed with a variety of visualization algorithms including full volume maximum intensi ty projection and sliding thin slab reformation. Using automated exposure control and adjustment of the mA and/or kV according to patient size, radiation dose was kept as low as reasonably achievable t o obtain optimal diagnostic quality images. DICOM format image data is available electronically for review and comparison. FINDINGS: The lungs are clear without infiltrate, nodule, or mass. There is no pleural effusion. No appreciab le pathological adenopathy is seen within the mediastinum. There is no evidence of PE for technique. CONCLUSION: Unremarkable study. Electronically signed by: Jesus Perez MD 07/30/2018 7:55 PM EST
--- NOTE | 2018-07-30 20:47 | CT ---
EXAM DATE: 07/30/2018 8:32 PM EST AGE/SEX: 57 years / Female INDICATIONS: Weakness. Dissection. CLINICAL DATA: This is the patient's initial encounter. Patient reports that signs and symptoms have been present for 1 day and indicates a pain score of 3/10. MEDICAL/SURGICAL HISTORY: Congestive heart failure. Diabetes. Hypertension. None. RADIATION DOSE: 11.05 CTDI (mGy) COMPARISON: No prior exams available for comparison. TECHNIQUE: Volumetric scanning was performed using a multirow detector CT scanner during bolus infus ion of 70 ml Omnipaque 350 (iohexol) nonionic water-soluble contrast as a single exam dose. The da ta was postprocessed with a variety of visualization algorithms including full-volume maximum intensi ty projection, multiplanar sliding thin-slab reformation, curved-planar reformation, and surface-rend ering techniques. Using automated exposure control and adjustment of the mA and/or kV according to p atient size, radiation dose was kept as low as reasonably achievable to obtain optimal diagnostic adrienne lity images. DICOM format image data is available electronically for review and comparison. Percent stenosis is calculated using the diameter of the stenotic region over the diameter of the nor mal distal internal carotid artery. FINDINGS: Aortic Arch: There is a three-vessel origin of the great vessels from the aorta. No evidence of ost ial narrowing Right Carotid: Mild and focal calcified plaque seen of the bulb and proximal internal carotid artery . The proximal ICA has 30% or less narrowing over an approximately 9 mm in length.. Left Carotid: The common carotid artery is intact. The carotid bulb has a normal configuration with out ulceration or narrowing. Minimal plaque focally along the posterior margin of the proximal ICA. The internal carotid artery lumen is otherwise smooth without stenosis. The external carotid artery is intact. Vertebrals: Right vertebral artery is slightly dominant. No stenotic lesions are seen. CONCLUSION: 1. Focal atherosclerotic plaque of the carotid bifurcations, mild on the right and trace on the left . No hemodynamically significant narrowing. 2. No dissection. Electronically signed by: Solis Ochoa MD 07/30/2018 8:46 PM EST
[2018-07-30 20:57] LABS: Baso % (Auto) 0.2 % (0.0-2.0); Hematocrit 42.8 % (35.0-46.0); Hemoglobin 13.8 gm/dL (11.6-15.3); Lymph % (Auto) 6.3 % (9.0-44.0); Mean Corpuscular HGB Conc 32.3 % (32.0-36.0); Mean Corpuscular Hemoglobin 28.3 pg (27.0-34.0); Mean Corpuscular Volume 87.8 fL (80.0-100.0); Mean Platelet Volume 11.3 fL (7.0-11.0); Mono # (Auto) 0.8 th/mm3 (0.0-0.9); Neut # (Auto) 14.2 th/mm3 (1.8-7.7); Neut % (Auto) 88.5 % (16.0-70.0); Platelet Count 184 th/mm3 (150-450); Red Blood Count 4.88 mil/mm3 (4.00-5.30); Red Cell Distribution Width 13.6 % (11.6-17.2)
[2018-07-30] MEDS ORDERED: Dextrose 50% in Water 50 ML Vial IV.PUSH PRN (21:37)
[2018-07-30] MEDS ORDERED: Bisacodyl 10 MG Supp RECTAL PRN (21:39)
[2018-07-30] MEDS ORDERED: Acetaminophen 325 MG Tablet PO PRN (21:39)
[2018-07-30] MEDS ORDERED: Morphine Sulfate Inj 2 MG/ML Vial IV.PUSH PRN (21:39)
--- NOTE | 2018-07-30 21:42 | P.HPIM ---
History of Present Illness Primary Care Physician: Lloyd Dutta MD History of Present Illness: This is a 57-year-old female with a PMH of HTN, Hyperlipidemia, CAD s/p Stent x3 and DM who presented to the ER w/ complaints of chest pain and palpitations starting earlier today. Chest pain is dull, describes it as a "discomfort", moderate, w/ radiation to shoulders. Follows w/ Dr. Henao as outpatient, has Nuclear Stress q2 yrs, states last stress in 2017 normal. On arrival, BP 119/56, HR 105, O2 sat 100% on RA, Afebrile. WBC 18.4, repeat 16. D-dimer negative. Creatinine 1.12. BS 355. Troponin negative. UA negative. CXR with no acute findings. CT Head negative. CTA Chest negative. CTA Neck atherosclerotic plaque of the carotid bifurcations, mild on the right trace on the left, no significant narrowing. While in ER, pt w/ episode of nausea/ vomiting and persistent tachycardia, HR 120's. Chest pain currently improved. - Diagnosis (1) Chest pain (2) Tachycardia (3) Renal insufficiency (4) Leukocytosis (5) DM (diabetes mellitus) Review of Systems PAST FAMILY HISTORY: Reviewed. No h/o DM or CAD All other systems reviewed negative except as stated in HPI [facility] - History History Provided By: Patient - Medical History Medical History: Medical History (Last Updated 07/30/18 @ 16:02 by Mellissa Beth) CHF (congestive heart failure) Diabetes HTN (hypertension) - Surgical History Surgical History: Surgical History (Last Updated 07/30/18 @ 16:02 by Mellissa Beth) H/O heart artery stent Stented coronary artery - Tobacco History Second Hand Smoke Exposure: No Tobacco Use In Past 30 Days: No Smoking Status: Never smoker Tobacco Type: Cigarettes - Alcohol History How Often Do You Have a Drink Containing Alcohol: 2 to 3 times a week - Substance Use History Substance History: No History of Abuse - Travel History Recent Travel in the [place] Within the Last 8 Weeks: No Recent Travel Out of the Country Within the Last 8 Weeks: No - Immunization History Tetanus Immunization: Unsure Medications and Allergies Active Medications: Active Medications Acetaminophen (Tylenol) 650 mg PO Q4H PRN PRN Reason: Temp > 100.4 Al Hydroxide/Mg Hydroxide (Milk Of Magnesia Liq) 30 ml PO Q12H PRN PRN Reason: Mild Constipation Aspirin (Ecotrin) 81 mg PO DAILY ON LICENSE OF [facility] Bisacodyl (Dulcolax Supp) 10 mg RECTAL DAILY PRN PRN Reason: SEVERE CONSITIPATION Dextrose (D50w Vial) 50 ml IV.PUSH UNSCH PRN PRN Reason: PER HYPOGLYCEMIA PROTOCOL Glucagon (Glucagon Inj) 1 mg OTHER PRN PRN PRN Reason: for Hypoglycemia Protocol Sodium Chloride (Ns Inj) 1,000 mls @ 100 mls/hr IV.CONT .Q10H ON LICENSE OF [facility] Insulin Aspart (Novolog Insulin Correctional Sugar Inj) 0 unit SQ ACHS AMINAH; Protocol Lactulose (Lactulose Liq) 30 ml PO DAILY PRN PRN Reason: SEVERE CONSITIPATION Metoprolol Tartrate (Lopressor) 25 mg PO BID ON LICENSE OF [facility] Morphine Sulfate (Morphine Inj) 2 mg IV.PUSH Q4H PRN PRN Reason: PAIN 6-10 Nitroglycerin (Nitro-Bid 2% Oint) 0.5 inch TOPICAL Q6HR PRN PRN Reason: CHEST PAIN Ondansetron HCl (Zofran Inj) 4 mg IV.PUSH Q6H PRN PRN Reason: NAUSEA OR VOMITING Pravastatin Sodium (Pravachol) 40 mg PO DAILY ON LICENSE OF [facility] Senna/Docusate Sodium (Helen-Colace) 1 tab PO BID ON LICENSE OF [facility] Sennosides (Senokot) 17.2 mg PO Q12H PRN PRN Reason: Moderate Constipation Sodium Chloride (Ns Flush) 2 ml IV.FLUSH BID ON LICENSE OF [facility] Sodium Chloride (Ns Flush) 2 ml IV.FLUSH PRN PRN PRN Reason: FLUSH AFTER USING IV ACCESS Allergies Allergy/AdvReac Type Severity Reaction Status Date / Time No Known Allergies Allergy Verified 07/30/18 16:17 Home Medications Medication Instructions Recorded Confirmed Type atorvastatin [Lipitor] 40 mg PO DAILY 07/30/18 07/30/18 History furosemide [Lasix] 20 mg PO DAILY 07/30/18 07/30/18 History insulin aspart U-100 [Novolog 1 sliding scale dose SUBCUT UD 07/30/18 07/30/18 History U-100 Insulin aspart] losartan-hydrochlorothiazide 1 tab PO DAILY 07/30/18 07/30/18 History [Hyzaar] Exam Vital signs: Vital Signs 07/30/18 14:03 11/09/18 14:38 07/30/18 16:17 Temperature 98.3 F Pulse Rate 100 H 105 H Respiratory Rate 18 14 Blood Pressure 119/56 L 120/58 L Pulse Oximetry 100 100 99 07/30/18 16:18 07/30/18 19:05 Temperature Pulse Rate 97 H Respiratory Rate 17 Blood Pressure 116/56 L Pulse Oximetry 99 100 Intake & Output 07/30/18 07/30/18 07/31/18 06:59 18:59 06:59 Intake Total 1000 / 1000 Balance 1000 / 1000 Weight 69.853 kg Intake: IV 1000 / 1000 NS Inj 1,000 ML @ Wide Open IV. 1000 / 1000 SIG BOLUS ONE Rx#:[id number] Narrative: PE: GENERAL: Very pleasant middle-aged white female in no acute distress. at bedside. SKIN: Focused skin assessment warm and dry. HEENT: PERRLA, EOMI. No scleral icterus or conjunctival pallor. No lid lag or facial droop. CARDIOVASCULAR: Regular rate and rhythm. No obvious murmurs to auscultation. No chest tenderness to palpation. RESPIRATORY: No obvious rhonchi or wheezing. Clear to auscultation. Breath sounds equal bilaterally. GASTROINTESTINAL: Abdomen soft, non-tender, nondistended. BS normal. MUSCULOSKELETAL: Extremities without clubbing, cyanosis, or edema. No obvious deformities. NEUROLOGICAL: Awake, alert and oriented x4. No focal neurologic deficits. Moving both upper and lower extremities spontaneously. PSYCHIATRIC: Appropriate mood and affect. Insight and judgment normal. Results - Labs CBC & Chem 7: 07/30/18 20:35 07/30/18 16:50 Labs: Short CBC 07/30/18 07/30/18 Range/Units 16:50 20:35 WBC 18.4 H 16.0 H (4.0-11.0) th/mm3 Hgb 15.6 H 13.8 (11.6-15.3) gm/dL Hct 46.3 H 42.8 (35.0-46.0) % Plt Count 191 184 (150-450) th/mm3 BMP 07/30/18 16:50 Sodium 140 Potassium 4.3 Chloride 97 L Carbon Dioxide 29.0 BUN 36 H Creatinine 1.12 H Calcium 9.3 Cardiac Enzymes 07/30/18 Range/Units 16:50 Troponin I Less than 0.02 L (0.02-0.05) ng/mL Liver Function 07/30/18 Range/Units 16:50 Total Bilirubin 0.8 (0.2-1.0) mg/dL AST 27 (15-37) U/L ALT 32 (10-53) U/L Alkaline Phosphatase 74 (45-117) U/L Albumin 4.4 (3.4-5.0) g/dL Urine 07/30/18 Range/Units 18:28 Urine Color Yellow (Yellw/Straw) Urine Clarity Clear (Clear) Urine pH 5.0 (5.0-8.5) Ur Specific [place] 1.013 (1.002-1.035) Urine Protein Negative (Neg-Trace) mg/dL Urine Glucose (UA) 500 or greater (Negative) mg/dL - Imaging Impressions Chest X-Ray 07/30/18 14:09 CONCLUSION: 1. No acute cardiopulmonary disease. Head CT 07/30/18 16:45 CONCLUSION: 1. Negative CT Head non contrast. 2. No evidence of acute infarct, hemorrhage, mass or edema. . Chest CTA 07/30/18 19:02 CONCLUSION: Unremarkable study. Neck CTA 07/30/18 19:02 CONCLUSION: 1. Focal atherosclerotic plaque of the carotid bifurcations, mild on the right and trace on the left. No hemodynamically significant narrowing. 2. No dissection. Caprini VTE Risk Assessment Caprini VTE Risk Assessment: No/Low Risk (score <= 1) Caprini Risk Assessment Model: Point Value = 1 Point Value = 2 Point Value = 3 Point Value = 5 Age 41-60 Minor surgery BMI > 25 kg/m2 Swollen legs Varicose veins or History of unexplained or recurrent spontaneous Oral contraceptives or hormone replacement Sepsis (< 1 month) Serious lung disease, including pneumonia (< 1 month) Abnormal pulmonary function Acute myocardial infarction Congestive heart failure (< 1 month) History of inflammatory bowel disease Medical patient at bed rest Age 61-74 Arthroscopic surgery Major open surgery (> 45 min) Laparoscopic surgery (> 45 min) Malignancy Confined to bed (> 72 hours) Immobilizing plaster cast Central venous access Age >= 75 History of VTE Family history of VTE Factor V Leiden Prothrombin [id number] Lupus anticoagulant Anticardiolipin antibodies Elevated serum homocysteine Heparin-induced thrombocytopenia Other congenital or acquired thrombophilia Stroke (< 1 month) Elective arthroplasty Hip, pelvis, or leg fracture Acute spinal cord injury (< 1 month) Prophylaxis Regimen: Total Risk Factor Score Risk Level Prophylaxis Regimen 0-1 Low Early ambulation 2 Moderate Order ONE of the following: *Sequential Compression Device (SCD) *Heparin 5000 units SQ BID 3-4 Higher Order ONE of the following medications: *Heparin 5000 units SQ TID *Enoxaparin/Lovenox 40 mg SQ daily (WT < 150 kg, CrCl > 30 mL/min) *Enoxaparin/Lovenox 30 mg SQ daily (WT < 150 kg, CrCl > 10-29 mL/min) *Enoxaparin/Lovenox 30 mg SQ BID (WT < 150 kg, CrCl > 30 mL/min) AND/OR *Sequential Compression Device (SCD) 5 or more Highest Order ONE of the following medications: *Heparin 5000 units SQ TID (Preferred with Epidurals) *Enoxaparin/Lovenox 40 mg SQ daily (WT < 150 kg, CrCl > 30 mL/min) *Enoxaparin/Lovenox 30 mg SQ daily (WT < 150 kg, CrCl > 10-29 mL/min) *Enoxaparin/Lovenox 30 mg SQ BID (WT < 150 kg, CrCl > 30 mL/min) AND *Sequential Compression Device (SCD) Assessment and Plan - Assessment (1) Chest pain Code(s): R07.9 - Chest pain, unspecified Status: Acute (2) Tachycardia Code(s): R00.0 - Tachycardia, unspecified Status: Acute (3) Renal insufficiency Code(s): N28.9 - Disorder of kidney and ureter, unspecified Status: Acute (4) Leukocytosis Code(s): D72.829 - Elevated white blood cell count, unspecified Status: Acute (5) DM (diabetes mellitus) Code(s): E11.9 - Type 2 diabetes mellitus without complications Status: Acute - Plan A/P: 1. Chest Pain: acute onset of chest pain, h/o CAD s/p stent x3 in the past, initial trop negative, EKG w/ no acute ischemia. Admit for Observation, telemetry, check serial cardiac enzymes, check lipid profile/Hgb A1c. Morphine/ NTG prn. Follows w/ Dr. Henao, last stress 2017 normal per patient. CXR negative, CTA Chest w/ no acute findings, CTA Neck w/ mild plaque carotid bifurcation, images reviewed. 2. Tachycardia: c/o palpitations, HR 100-120's while in ER, s/p IVF, unclear etiology. Check TSH. Telemetry. Check Echo to eval for underlying cardiomyopathy. 3. Leukocytosis: WBC 18, repeat WBC 16, unclear etiology, no evidence of infection, U/a negative, CXR/CTA Chest negative as well, images reviewed. Will hold antibiotics at this time as no clear etiology, repeat labs in am, monitor closely. 4. Renal Insufficiency: Creatinine 1.12, previously 0.96 on 02/2018, U/a negative for UTI, IVF, monitor I/O, repeat labs in am. 5. DM: +insulin pump, will continue, check Accu-Cheks, Check Hgb A1c. 6. DVT Prophylaxis: SCD/Teds 7. Social work for d/c planning as needed. 8. Case discussed w/ ER physician at length, labs/records/imaging reviewed by me.
--- NOTE | 2018-07-30 21:58 | ECG ---
Date Performed: 07/30/2018 Time Performed: 14:12:20 PTAGE: 57 years EKG: SINUS TACHYCARDIA POSSIBLE LEFT ATRIAL ENLARGEMENT LEFT BUNDLE BRANCH BLOCK ABNORMAL ECG Co mpared to prior electrocardiogram, rate has increased . PREVIOUS TRACING : 09/07/2016 07.47 DOCTOR: Serg Sheets Interpretating Date/Time 08/02/2018 07:03:43
[2018-07-30 22:55] LABS: Creatine Kinase 119 U/L (26-192)
[2018-07-30] MEDS: Metoprolol Tartrate 25 MG Tablet PO SCH (23:55)
[2018-07-30] MEDS: Sod Chloride 0.9% Inj 1,000 ML IV.CONT SCH (23:55)
[2018-07-31 04:18] LABS: Baso # (Auto) 0.1 th/mm3 (0.0-0.2); Baso % (Auto) 0.7 % (0.0-2.0); Eos % (Auto) 0.1 % (0.0-4.0); Hematocrit 36.7 % (35.0-46.0); Hemoglobin 12.2 gm/dL (11.6-15.3); Lymph # (Auto) 1.5 th/mm3 (1.0-4.8); Mean Corpuscular HGB Conc 33.3 % (32.0-36.0); Mean Corpuscular Hemoglobin 28.8 pg (27.0-34.0); Mean Corpuscular Volume 86.5 fL (80.0-100.0); Mean Platelet Volume 10.4 fL (7.0-11.0); Mono # (Auto) 0.9 th/mm3 (0.0-0.9); Neut # (Auto) 9.3 th/mm3 (1.8-7.7); Neut % (Auto) 78.2 % (16.0-70.0); Platelet Count 164 th/mm3 (150-450); Red Blood Count 4.24 mil/mm3 (4.00-5.30); Red Cell Distribution Width 13.6 % (11.6-17.2); White Blood Count 11.9 th/mm3 (4.0-11.0)
[2018-07-31 04:55] LABS: Alanine Aminotransferase 26 U/L (10-53); Albumin 3.1 g/dL (3.4-5.0); Anion Gap 8 meq/L (5-15); Aspartate Aminotransferase 18 U/L (15-37); Blood Urea Nitrogen 33 mg/dL (7-18); Calcium 8.2 mg/dL (8.5-10.1); Carbon Dioxide 28.8 meq/L (21.0-32.0); Chloride 104 meq/L (98-107); Cholesterol 106 mg/dL (120-200); Glomerular Filtration Rate 55 mL/min (>89); Glucose,Random 171 mg/dL (74-106); Potassium 3.7 meq/L (3.5-5.1); Sodium 141 meq/L (136-145); Triglycerides 38 mg/dL (42-150)
[2018-07-31 05:05] LABS: Alkaline Phosphatase 57 U/L (45-117); Chol/HDL Ratio 1.41 Ratio; HDL Cholesterol 74.7 mg/dL (40.0-60.0); LDL Cholesterol,Calculated 24 mg/dL (0-99); Thyroid Stimulating Hormone 0.309 uIU/mL (0.358-3.740); Total Protein 5.6 g/dL (6.4-8.2)
[2018-07-31] MEDS ORDERED: Insulin NovoLOG Aspart Correctional Sugar Inj SQ SCH (08:00)
[2018-07-31] MEDS: Metoprolol Tartrate 25 MG Tablet PO SCH ×2 (09:00→20:39)
--- NOTE | 2018-07-31 09:36 | P.CONCA ---
History of Present Illness Service: Cardiology Reason for Consult: Chest pain, elevated troponin Primary Care Provider: Lloyd Dutta MD Chief Complaint: Chest pain History of Present Illness: Pleasant 57-year-old female followed regularly by Dr. Henao, with a significant past cardiac history of ASHD stents placed x3, hypertension, hyperlipidemia and diabetes. Patient reports that she has not had much of an appetite for the past week, she developed chest pain that radiated to her shoulders yesterday, reports symptoms resolved after vomiting which she had eaten for lunch earlier in the day. She reports having a negative nuclear stress test approximately 2 years ago. CTA ruled out PE. Troponin increased to 0.13. EKG shows left bundle branch block. Upon examination this morning patient is sitting on side of bed eating breakfast, she denies any chest pain or shortness of breath. She has been up ambulating to the restroom without any difficulty. Review of Systems All other systems reviewed negative except as stated in HPI Constitutional: Reports lack of energy Comments: decreased appetite Cardiovascular: Reports chest pain PMFSH - History History Provided By: Patient - Medical History Medical History: Medical History (Last Updated 07/30/18 @ 16:02 by Mellissa Beth) CHF (congestive heart failure) Diabetes HTN (hypertension) - Surgical History Surgical History: Surgical History (Last Updated 07/30/18 @ 16:02 by Mellissa Beth) H/O heart artery stent Stented coronary artery - Social History I have reviewed the patient's Social History: Yes - Tobacco History Second Hand Smoke Exposure: No Tobacco Use In Past 30 Days: No Smoking Status: Never smoker Tobacco Type: Cigarettes - Alcohol History How Often Do You Have a Drink Containing Alcohol: 2 to 3 times a week - Substance Use History Substance History: No History of Abuse - Travel History Recent Travel in the [place] Within the Last 8 Weeks: No Recent Travel Out of the Country Within the Last 8 Weeks: No - Immunization History Tetanus Immunization: Unsure Medications and Allergies Allergies Allergy/AdvReac Type Severity Reaction Status Date / Time No Known Allergies Allergy Verified 07/30/18 16:17 Home Medications Medication Instructions Recorded Confirmed Type atorvastatin [Lipitor] 40 mg PO DAILY 07/30/18 07/30/18 History furosemide [Lasix] 20 mg PO DAILY 07/30/18 07/30/18 History insulin aspart U-100 [Novolog 1 sliding scale dose SUBCUT UD 07/30/18 07/30/18 History U-100 Insulin aspart] losartan-hydrochlorothiazide 1 tab PO DAILY 07/30/18 07/30/18 History [Hyzaar] Active Medications: Active Medications Acetaminophen (Tylenol) 650 mg PO Q4H PRN PRN Reason: Temp > 100.4 Al Hydroxide/Mg Hydroxide (Milk Of Magnesia Liq) 30 ml PO Q12H PRN PRN Reason: Mild Constipation Aspirin (Ecotrin) 81 mg PO DAILY [facility] Bisacodyl (Dulcolax Supp) 10 mg RECTAL DAILY PRN PRN Reason: SEVERE CONSITIPATION Dextrose (D50w Vial) 50 ml IV.PUSH UNSCH PRN PRN Reason: PER HYPOGLYCEMIA PROTOCOL Furosemide (Lasix) 20 mg PO DAILY [facility] Glucagon (Glucagon Inj) 1 mg OTHER PRN PRN PRN Reason: for Hypoglycemia Protocol Sodium Chloride (Ns Inj) 1,000 mls @ 100 mls/hr IV.CONT .Q10H [facility] Last Admin: 07/30/18 23:55 Dose: 100 mls/hr Lactulose (Lactulose Liq) 30 ml PO DAILY PRN PRN Reason: SEVERE CONSITIPATION Metoprolol Tartrate (Lopressor) 25 mg PO BID [facility] Last Admin: 07/30/18 23:55 Dose: Not Given Morphine Sulfate (Morphine Inj) 2 mg IV.PUSH Q4H PRN PRN Reason: PAIN 6-10 Nitroglycerin (Nitro-Bid 2% Oint) 0.5 inch TOPICAL Q6HR PRN PRN Reason: CHEST PAIN Ondansetron HCl (Zofran Inj) 4 mg IV.PUSH Q6H PRN PRN Reason: NAUSEA OR VOMITING Pravastatin Sodium (Pravachol) 40 mg PO DAILY [facility] Senna/Docusate Sodium (Helen-Colace) 1 tab PO BID [facility] Sennosides (Senokot) 17.2 mg PO Q12H PRN PRN Reason: Moderate Constipation Sodium Chloride (Ns Flush) 2 ml IV.FLUSH BID [facility] Sodium Chloride (Ns Flush) 2 ml IV.FLUSH PRN PRN PRN Reason: FLUSH AFTER USING IV ACCESS Exam Vital signs: Vital Signs 07/30/18 14:03 07/30/18 14:38 07/30/18 16:17 Temperature 98.3 F Pulse Rate 100 H 105 H Respiratory Rate 18 14 Blood Pressure 119/56 L 120/58 L Pulse Oximetry 100 100 99 07/30/18 16:18 07/30/18 19:05 07/30/18 23:57 Temperature 98.4 F Pulse Rate 97 H 112 H Respiratory Rate 17 16 Blood Pressure 116/56 L 104/50 L Pulse Oximetry 99 100 97 07/31/18 00:15 07/31/18 04:00 07/31/18 05:09 Temperature 98.2 F Pulse Rate 101 H 88 91 H Respiratory Rate 17 Blood Pressure 103/52 L Pulse Oximetry 98 07/31/18 07:22 Temperature 99.0 F Pulse Rate 80 Respiratory Rate 16 Blood Pressure 101/51 L Pulse Oximetry 93 L Intake & Output 07/30/18 07/31/18 07/31/18 18:59 06:59 18:59 Intake Total 1000 / 1000 Balance 1000 / 1000 Weight 69.853 kg Intake: IV 1000 / 1000 NS Inj 1,000 ML @ Wide Open IV. 1000 / 1000 SIG BOLUS ONE Rx#:[id number] Other: # Voids 2 - Constitutional no acute distress, average body habitus, cooperative - Routine HEENT Exam Head: Present: normocephalic, atraumatic Eye: Present: EOMI, PERRL, normal accommodation ENT: Present: mucous membranes moist - Routine Neck Exam Present: supple - Routine Respiratory Exam Present: CTA bilaterally - Routine Cardiovascular Exam Present: RRR Comments: LBBB - Routine Abdominal Exam Present: soft - Routine Skin Exam Present: intact - Routine Neurological Exam Present: alert, oriented X3 Results 07/31/18 04:00 07/31/18 03:10 Cardiac Enzymes 07/30/18 07/30/18 07/30/18 Range/Units 16:50 20:35 22:00 AST 27 (15-37) U/L Troponin I Less than 0.02 L Less than 0.02 L (0.02-0.05) ng/mL B-Natriuretic Peptide 42 (0-100) pg/mL 07/31/18 07/31/18 Range/Units 03:10 05:30 AST 18 (15-37) U/L Troponin I 0.10 H 0.13 H (0.02-0.05) ng/mL B-Natriuretic Peptide (0-100) pg/mL Coagulation 07/30/18 Range/Units 20:35 B-Natriuretic Peptide 42 (0-100) pg/mL Lipids 07/31/18 Range/Units 03:10 Triglycerides 38 L (42-150) mg/dL Cholesterol 106 L (120-200) mg/dL HDL Cholesterol 74.7 H (40.0-60.0) mg/dL Cholesterol/HDL Ratio 1.41 Ratio CBC 07/30/18 07/30/18 07/31/18 Range/Units 16:50 20:35 04:00 WBC 18.4 H 16.0 H 11.9 H (4.0-11.0) th/mm3 RBC 5.26 4.88 4.24 (4.00-5.30) mil/mm3 Hgb 15.6 H 13.8 12.2 (11.6-15.3) gm/dL Hct 46.3 H 42.8 36.7 (35.0-46.0) % Plt Count 191 184 164 (150-450) th/mm3 Neut # (Auto) 15.8 H 14.2 H 9.3 H (1.8-7.7) th/mm3 Lymph # (Auto) 1.5 1.0 1.5 (1.0-4.8) th/mm3 [place] # (Auto) 1.0 H 0.8 0.9 (0.0-0.9) th/mm3 Eos # (Auto) 0.0 0.0 0.0 (0.0-0.4) th/mm3 Baso # (Auto) 0.0 0.0 0.1 (0.0-0.2) th/mm3 Comprehensive Metabolic Panel 07/30/18 07/31/18 Range/Units 16:50 03:10 Sodium 140 141 (136-145) meq/L Potassium 4.3 3.7 (3.5-5.1) meq/L Chloride 97 L 104 (98-107) meq/L Carbon Dioxide 29.0 28.8 (21.0-32.0) meq/L BUN 36 H 33 H (7-18) mg/dL Creatinine 1.12 H 1.03 H (0.50-1.00) mg/dL Calcium 9.3 8.2 L D (8.5-10.1) mg/dL AST 27 18 (15-37) U/L ALT 32 26 (10-53) U/L Alkaline Phosphatase 74 57 (45-117) U/L Total Protein 7.6 5.6 L D (6.4-8.2) g/dL Albumin 4.4 3.1 L D (3.4-5.0) g/dL Intake and Output 07/30/18 07/31/18 07/31/18 22:59 06:59 14:59 Intake Total 1000 / 1000 Balance 1000 / 1000 Intake: IV 1000 / 1000 NS Inj 1,000 ML @ Wide Open IV. 1000 / 1000 SIG BOLUS ONE Rx#:[id number] Other: # Voids 2 - Imaging and Cardiology Imaging: Impressions Chest X-Ray 07/30/18 14:09 CONCLUSION: 1. No acute cardiopulmonary disease. Head CT 07/30/18 16:45 CONCLUSION: 1. Negative CT Head non contrast. 2. No evidence of acute infarct, hemorrhage, mass or edema. . Chest CTA 07/30/18 19:02 CONCLUSION: Unremarkable study. Neck CTA 07/30/18 19:02 CONCLUSION: 1. Focal atherosclerotic plaque of the carotid bifurcations, mild on the right and trace on the left. No hemodynamically significant narrowing. 2. No dissection. Assessment and Plan - Plan Assessment Non-STEMI ASHD Diabetes Tachycardia Hypertension Plan Currently chest pain-free, no acute EKG changes, will keep on low dose aspirin, low-dose beta-alejandra, and statin. Will have Dr. Henao see patient Thursday morning to decide in he wants to proceed with heart cath, NUC or Medical management. Heart rate stable this a.m., CTA ruled out PE. Blood pressure has been running low, asymptomatic. Patient was seen and evaluated by Dr. Thomas who participated in care management and decision making. The exam, history, and the medical decision-making described in the above note were completed with the assistance of the mid-level provider. I reviewed and agree with the findings presented. I attest that I had a [id number] encounter with the patient on the same day, and personally performed and documented my assessment and findings in the medical record. Has NSTEMI, chest pain and h/o stents , will defer to Dr Henao cath vs ETT or nuclear. Code Status: Full Code Discussed Condition With: Dr. Thomas, RN
--- NOTE | 2018-07-31 10:00 | ECG ---
Date Performed: 07/31/2018 Time Performed: 05:34:07 PTAGE: 57 years EKG: Sinus rhythm LEFT BUNDLE BRANCH BLOCK ABNORMAL ECG No significant change from prior electrocardiogram. PREVIOUS TRACING : 07/31/2018 00.07 DOCTOR: Serg Sheets Interpretating Date/Time 07/31/2018 09:58:21
--- NOTE | 2018-07-31 10:05 | ECG ---
Date Performed: 07/31/2018 Time Performed: 00:07:13 PTAGE: 57 years EKG: SINUS TACHYCARDIA LEFT BUNDLE BRANCH BLOCK ABNORMAL ECG No significant change from prior el ectrocardiogram. PREVIOUS TRACING : 07/30/2018 21.48 DOCTOR: Serg Sheets Interpretating Date/Time 07/31/2018 10:04:03
--- NOTE | 2018-07-31 10:08 | ECG ---
Date Performed: 07/30/2018 Time Performed: 21:48:28 PTAGE: 57 years EKG: SINUS TACHYCARDIA LEFT BUNDLE BRANCH BLOCK ABNORMAL ECG No significant change from prior el ectrocardiogram. PREVIOUS TRACING : 07/30/2018 14.12 DOCTOR: Serg Sheets Interpretating Date/Time 07/31/2018 10:07:47
[2018-07-31] MEDS: Senna/Docusate Sodium 8.6/50 MG Tablet PO SCH ×2 (10:09→20:39)
[2018-07-31] MEDS: Sod Chloride 0.9% Inj 1,000 ML IV.CONT SCH ×2 (10:10→19:17)
--- NOTE | 2018-07-31 11:38 | P.PN ---
Subjective Interval history: Patient is seen lying comfortably in bed. She tells me her chest pain has resolved. No shortness of breath. No nausea vomiting or diarrhea. Physical Exam Vital signs: Vital Signs 07/30/18 14:03 07/30/18 14:38 07/30/18 16:17 Temperature 98.3 F Pulse Rate 100 H 105 H Respiratory Rate 18 14 Blood Pressure 119/56 L 120/58 L Pulse Oximetry 100 100 99 07/30/18 16:18 07/30/18 19:05 07/30/18 23:57 Temperature 98.4 F Pulse Rate 97 H 112 H Respiratory Rate 17 16 Blood Pressure 116/56 L 104/50 L Pulse Oximetry 99 100 97 07/31/18 00:15 07/31/18 04:00 07/31/18 05:09 Temperature 98.2 F Pulse Rate 101 H 88 91 H Respiratory Rate 17 Blood Pressure 103/52 L Pulse Oximetry 98 07/31/18 07:22 07/31/18 11:14 Temperature 99.0 F 98.6 F Pulse Rate 80 82 Respiratory Rate 16 16 Blood Pressure 101/51 L 117/55 L Pulse Oximetry 93 L 93 L Intake & Output 07/30/18 07/31/18 07/31/18 18:59 06:59 18:59 Intake Total 1000 / 1000 1000 / 1000 Balance 1000 / 1000 1000 / 1000 Weight 69.853 kg Intake: IV 1000 / 1000 1000 / 1000 NS Inj 1,000 ML @ 100 mls/hr IV 1000 / 1000 .CONT .Q10H [facility] Rx#:[id number] NS Inj 1,000 ML @ Wide Open IV. 1000 / 1000 SIG BOLUS ONE Rx#:[id number] Other: # Voids 2 Narrative: GENERAL: Well-nourished, well-developed adult female in no obvious distress. SKIN: Warm and dry. HEAD: Atraumatic. Normocephalic. CARDIOVASCULAR: Regular rate and rhythm. RESPIRATORY: No accessory muscle use. Clear to auscultation. Breath sounds equal bilaterally. GASTROINTESTINAL: Abdomen soft, non-tender, non-distended. Positive bowel sounds. MUSCULOSKELETAL: Extremities without clubbing, cyanosis, or edema. No obvious deformities. NEUROLOGICAL: Awake and alert. No obvious cranial nerve deficits. Motor grossly within normal limits. Normal speech. PSYCHIATRIC: Appropriate mood and affect; insight and judgment good. Results - Labs CBC & Chem 7: 07/31/18 04:00 07/31/18 03:10 Laboratory Results - last 24 hr 07/30/18 07/30/18 07/30/18 16:50 16:50 16:50 WBC 18.4 H RBC 5.26 Hgb 15.6 H Hct 46.3 H MCV 87.9 MCH 29.7 MCHC 33.8 RDW 13.4 Plt Count 191 MPV 11.8 H Neut % (Auto) 85.8 H Lymph % (Auto) 8.1 L [place] % (Auto) 5.6 Eos % (Auto) 0.2 Baso % (Auto) 0.3 Neut # (Auto) 15.8 H Lymph # (Auto) 1.5 [place] # (Auto) 1.0 H Eos # (Auto) 0.0 Baso # (Auto) 0.0 WBC Differential . Differential Comment Auto diff final D-Dimer Quant (PE/DVT) 0.40 Sodium 140 Potassium 4.3 Chloride 97 L Carbon Dioxide 29.0 Anion Gap 14 BUN 36 H Creatinine 1.12 H Estimated GFR 50 L POC Glucose Random Glucose 355 H Calcium 9.3 Total Bilirubin 0.8 AST 27 ALT 32 Alkaline Phosphatase 74 Total Creatine Kinase Troponin I Less than 0.02 L B-Natriuretic Peptide Total Protein 7.6 Albumin 4.4 Triglycerides Cholesterol LDL Cholesterol, Calc HDL Cholesterol Cholesterol/HDL Ratio TSH Urine Color Urine Clarity Urine pH Ur Specific [place] Urine Protein Urine Glucose (UA) Urine Ketones Urine Occult Blood Urine Nitrate Urine Bilirubin Urine Urobilinogen Ur Leukocyte Esterase Urine RBC Urine WBC Ur Squamous Epith Cells Hyaline Casts Urine Mucus Ur Microscopic Review 07/30/18 07/30/18 07/30/18 18:28 20:35 20:35 WBC 16.0 H RBC 4.88 Hgb 13.8 Hct 42.8 MCV 87.8 MCH 28.3 MCHC 32.3 RDW 13.6 Plt Count 184 MPV 11.3 H Neut % (Auto) 88.5 H Lymph % (Auto) 6.3 L [place] % (Auto) 5.0 Eos % (Auto) 0.0 Baso % (Auto) 0.2 Neut # (Auto) 14.2 H Lymph # (Auto) 1.0 [place] # (Auto) 0.8 Eos # (Auto) 0.0 Baso # (Auto) 0.0 WBC Differential . Differential Comment Auto diff final D-Dimer Quant (PE/DVT) Sodium Potassium Chloride Carbon Dioxide Anion Gap BUN Creatinine Estimated GFR POC Glucose Random Glucose Calcium Total Bilirubin AST ALT Alkaline Phosphatase Total Creatine Kinase Troponin I B-Natriuretic Peptide 42 Total Protein Albumin Triglycerides Cholesterol LDL Cholesterol, Calc HDL Cholesterol Cholesterol/HDL Ratio TSH Urine Color Yellow Urine Clarity Clear Urine pH 5.0 Ur Specific [place] 1.013 Urine Protein Negative Urine Glucose (UA) 500 or greater Urine Ketones 80 or greater H Urine Occult Blood Negative Urine Nitrate Negative Urine Bilirubin Negative Urine Urobilinogen Less than 2 Ur Leukocyte Esterase Negative Urine RBC Less than 1 Urine WBC Less than 1 Ur Squamous Epith Cells <1 Hyaline Casts 4 Urine Mucus Few H Ur Microscopic Review Not Reportable 07/30/18 07/30/18 07/31/18 22:00 22:04 03:10 WBC RBC Hgb Hct MCV MCH MCHC RDW Plt Count MPV Neut % (Auto) Lymph % (Auto) [place] % (Auto) Eos % (Auto) Baso % (Auto) Neut # (Auto) Lymph # (Auto) [place] # (Auto) Eos # (Auto) Baso # (Auto) WBC Differential Differential Comment D-Dimer Quant (PE/DVT) Sodium 141 Potassium 3.7 Chloride 104 Carbon Dioxide 28.8 Anion Gap 8 BUN 33 H Creatinine 1.03 H Estimated GFR 55 L POC Glucose 353 H Random Glucose 171 H D Calcium 8.2 L D Total Bilirubin 0.4 AST 18 ALT 26 Alkaline Phosphatase 57 Total Creatine Kinase 119 Troponin I Less than 0.02 L 0.10 H B-Natriuretic Peptide Total Protein 5.6 L D Albumin 3.1 L D Triglycerides 38 L Cholesterol 106 L LDL Cholesterol, Calc 24 HDL Cholesterol 74.7 H Cholesterol/HDL Ratio 1.41 TSH 0.309 L Urine Color Urine Clarity Urine pH Ur Specific [place] Urine Protein Urine Glucose (UA) Urine Ketones Urine Occult Blood Urine Nitrate Urine Bilirubin Urine Urobilinogen Ur Leukocyte Esterase Urine RBC Urine WBC Ur Squamous Epith Cells Hyaline Casts Urine Mucus Ur Microscopic Review 07/31/18 07/31/18 07/31/18 04:00 05:30 07:38 WBC 11.9 H RBC 4.24 Hgb 12.2 Hct 36.7 MCV 86.5 MCH 28.8 MCHC 33.3 RDW 13.6 Plt Count 164 MPV 10.4 Neut % (Auto) 78.2 H Lymph % (Auto) 13.0 [place] % (Auto) 8.0 Eos % (Auto) 0.1 Baso % (Auto) 0.7 Neut # (Auto) 9.3 H Lymph # (Auto) 1.5 [place] # (Auto) 0.9 Eos # (Auto) 0.0 Baso # (Auto) 0.1 WBC Differential . Differential Comment Auto diff final D-Dimer Quant (PE/DVT) Sodium Potassium Chloride Carbon Dioxide Anion Gap BUN Creatinine Estimated GFR POC Glucose 87 Random Glucose Calcium Total Bilirubin AST ALT Alkaline Phosphatase Total Creatine Kinase Troponin I 0.13 H B-Natriuretic Peptide Total Protein Albumin Triglycerides Cholesterol LDL Cholesterol, Calc HDL Cholesterol Cholesterol/HDL Ratio TSH Urine Color Urine Clarity Urine pH Ur Specific [place] Urine Protein Urine Glucose (UA) Urine Ketones Urine Occult Blood Urine Nitrate Urine Bilirubin Urine Urobilinogen Ur Leukocyte Esterase Urine RBC Urine WBC Ur Squamous Epith Cells Hyaline Casts Urine Mucus Ur Microscopic Review - Imaging Impressions Chest X-Ray 07/30/18 14:09 CONCLUSION: 1. No acute cardiopulmonary disease. Head CT 07/30/18 16:45 CONCLUSION: 1. Negative CT Head non contrast. 2. No evidence of acute infarct, hemorrhage, mass or edema. . Chest CTA 07/30/18 19:02 CONCLUSION: Unremarkable study. Neck CTA 07/30/18 19:02 CONCLUSION: 1. Focal atherosclerotic plaque of the carotid bifurcations, mild on the right and trace on the left. No hemodynamically significant narrowing. 2. No dissection. Assessment and Plan - Assessment (1) Chest pain Code(s): R07.9 - Chest pain, unspecified Status: Acute (2) Tachycardia Code(s): R00.0 - Tachycardia, unspecified Status: Acute (3) Renal insufficiency Code(s): N28.9 - Disorder of kidney and ureter, unspecified Status: Acute (4) Leukocytosis Code(s): D72.829 - Elevated white blood cell count, unspecified Status: Acute (5) DM (diabetes mellitus) Code(s): E11.9 - Type 2 diabetes mellitus without complications Status: Acute - Plan A/P: 1. Chest Pain: acute onset of chest pain, h/o CAD s/p stent x3 in the past, initial trop negative, EKG w/ no acute ischemia. Admit for Observation, telemetry, check serial cardiac enzymes, check lipid profile/Hgb A1c. Morphine/ NTG prn. Follows w/ Dr. Henao, last stress 2017 normal per patient. CXR negative, CTA Chest w/ no acute findings, CTA Neck w/ mild plaque carotid bifurcation, images reviewed. Patient evaluated by cardiology who recommends outpatient follow-up. 2. Tachycardia: c/o palpitations, HR 100-120's while in ER, s/p IVF, unclear etiology. Check TSH. Telemetry. Check Echo to eval for underlying cardiomyopathy. Resolved. 3. Leukocytosis: WBC 18, repeat WBC 16, unclear etiology, no evidence of infection, U/a negative, CXR/CTA Chest negative as well, images reviewed. Will hold antibiotics at this time as no clear etiology, repeat labs in am, monitor closely. Leukocytosis improved with a.m. labs. Likely cardiac rather than infectious. 4. Renal Insufficiency: Creatinine 1.12, previously 0.96 on 02/2018, U/a negative for UTI, IVF, monitor I/O, repeat labs in am. Improving. 5. DM: +insulin pump, will continue, check Accu-Cheks, Check Hgb A1c. 6. DVT Prophylaxis: SCD/Teds
--- NOTE | 2018-07-31 11:38 | ECHRPT ---
Indication: Cardiomyopathy, unspecified CONCLUSIONS Normal left ventricular size. Wall thickness is normal. The left ventricular systolic function is normal with an estimated ejection fraction in the range of 55-60%. No definite regional wall motion abnormalities are present. Moderate mitral annular calcification. Trace mitral valve regurgitation. There is trace tricuspid regurgitation. The estimated pulmonary arterial pressure is 40 mmHg. The aortic valve is not well visualized. Possible mildly calcified aortic leaflets. BP: / HR: Rhythm: Sinus MEASUREMENTS (Male / Female) Normal Values Technical Quality:Good 2D ECHO LV Diastolic Diameter PLAX 4.6 cm 4.2 - 5.9 / 3.9 - 5.3 cm LV Systolic Diameter PLAX 3.5 cm IVS Diastolic Thickness 1.1 cm 0.6 - 1.0 / 0.6 - 0.9 cm LVPW Diastolic Thickness 1.1 cm 0.6 - 1.0 / 0.6 - 0.9 cm LV Relative Wall Thickness 0.5 LVOT Diameter 1.9 cm LA Systolic Diameter LX 3.3 cm 3.0 - 4.0 / 2.7 - 3.8 cm M-MODE Aortic Root Diameter MM 2.4 cm AV Cusp Separation MM 1.7 cm DOPPLER AV Peak Velocity 179.0 cm/s AV Peak Gradient 12.8 mmHg LVOT Peak Velocity 109.0 cm/s LVOT Peak Gradient 4.8 mmHg AV Area Cont Eq pk 1.7 cm MR Peak Velocity 376.5 cm/s MR Peak Gradient 56.7 mmHg Mitral E Point Velocity 114.0 cm/s Mitral A Point Velocity 113.0 cm/s Mitral E to A Ratio 1.0 LV E' Lateral Velocity 8.7 cm/s Mitral E to LV E' Lateral Ratio 13.1 LV E' Septal Velocity 7.5 cm/s Mitral E to LV E' Septal Ratio 15.2 TR Peak Velocity 293.0 cm/s TR Peak Gradient 34.3 mmHg Right Atrial Pressure 10.0 mmHg Pulmonary Artery Systolic Pressu 44.3 mmHg Right Ventricular Systolic Press 44.3 mmHg PV Peak Velocity 122.0 cm/s PV Peak Gradient 6.0 mmHg FINDINGS LEFT VENTRICLE Normal left ventricular size. Wall thickness is normal. The left ventricular systolic function is normal with an estimated ejection fraction in the range of 55-60%. No definite regional wall motion abnormalities are present. RIGHT VENTRICLE Normal right ventricular size and systolic function. LEFT ATRIUM The left atrial size is normal. RIGHT ATRIUM The right atrial size is normal. ATRIAL SEPTUM Normal atrial septal thickness without atrial level shunting by limited color doppler interrogation. AORTA The aortic root and proximal ascending aorta are normal in size on limited imaging. MITRAL VALVE Moderate mitral annular calcification. Trace mitral valve regurgitation. AORTIC VALVE The aortic valve is not well visualized. Possible mildly calcified aortic leaflets. TRICUSPID VALVE There is trace tricuspid regurgitation. The estimated pulmonary arterial pressure is 40 mmHg. PULMONARY VALVE No pulmonary valve regurgitation or stenosis. VESSELS The inferior vena cava is normal in size. PERICARDIUM No pericardial effusion. Alejandro Warner MD (Electronically Signed) Final Date:31 July 2018 11:37
--- NOTE | 2018-07-31 11:42 | P.DS ---
Date of admission: 07/30/18 21:06 Primary care physician: Lloyd Dutta MD Attending physician on discharge: Melvin Dash Anticipated date of discharge: 07/31/18 Brief History from admission: This is a 57-year-old female with a PMH of HTN, Hyperlipidemia, CAD s/p Stent x3 and DM who presented to the ER w/ complaints of chest pain and palpitations starting earlier today. Chest pain is dull, describes it as a "discomfort", moderate, w/ radiation to shoulders. Follows w/ Dr. Henao as outpatient, has Nuclear Stress q2 yrs, states last stress in 2017 normal. On arrival, BP 119/56, HR 105, O2 sat 100% on RA, Afebrile. WBC 18.4, repeat 16. D-dimer negative. Creatinine 1.12. BS 355. Troponin negative. UA negative. CXR with no acute findings. CT Head negative. CTA Chest negative. CTA Neck atherosclerotic plaque of the carotid bifurcations, mild on the right trace on the left, no significant narrowing. While in ER, pt w/ episode of nausea/ vomiting and persistent tachycardia, HR 120's. Chest pain currently improved. DS: Diagnosis - Discharge Diagnosis (1) Chest pain Status: Resolved (2) Tachycardia Status: Resolved (3) Renal insufficiency Status: Resolved (4) Leukocytosis Status: Resolved (5) DM (diabetes mellitus) Status: Chronic DS: Summary Hospital Course: A/P: 1. Chest Pain: acute onset of chest pain, h/o CAD s/p stent x3 in the past, initial trop negative, EKG w/ no acute ischemia. Admit for Observation, telemetry, check serial cardiac enzymes, check lipid profile/Hgb A1c. Morphine/ NTG prn. Follows w/ Dr. Henao, last stress 2017 normal per patient. CXR negative, CTA Chest w/ no acute findings, CTA Neck w/ mild plaque carotid bifurcation, images reviewed. Patient evaluated by cardiology who recommends outpatient follow-up. 2. Tachycardia: c/o palpitations, HR 100-120's while in ER, s/p IVF, unclear etiology. Check TSH. Telemetry. Check Echo to eval for underlying cardiomyopathy. Resolved. 3. Leukocytosis: WBC 18, repeat WBC 16, unclear etiology, no evidence of infection, U/a negative, CXR/CTA Chest negative as well, images reviewed. Will hold antibiotics at this time as no clear etiology, repeat labs in am, monitor closely. Leukocytosis improved with a.m. labs. Likely cardiac rather than infectious. 4. Renal Insufficiency: Creatinine 1.12, previously 0.96 on 02/2018, U/a negative for UTI, IVF, monitor I/O, repeat labs in am. Improving. 5. DM: +insulin pump, will continue, check Accu-Cheks, Check Hgb A1c. 6. DVT Prophylaxis: SCD/Teds - Time Spent with Patient Total time spent providing and/or coordinating discharge services: Less than 30 minutes - Quality: VTE Deep Vein Thrombosis/Pulmonary Embolism Present on Admission: No Exam Vital signs: Vital Signs 07/30/18 14:03 07/30/18 14:38 07/30/18 16:17 Temperature 98.3 F Pulse Rate 100 H 105 H Respiratory Rate 18 14 Blood Pressure 119/56 L 120/58 L Pulse Oximetry 100 100 99 07/30/18 16:18 07/30/18 19:05 07/30/18 23:57 Temperature 98.4 F Pulse Rate 97 H 112 H Respiratory Rate 17 16 Blood Pressure 116/56 L 104/50 L Pulse Oximetry 99 100 97 07/31/18 00:15 07/31/18 04:00 07/31/18 05:09 Temperature 98.2 F Pulse Rate 101 H 88 91 H Respiratory Rate 17 Blood Pressure 103/52 L Pulse Oximetry 98 07/31/18 07:22 07/31/18 11:14 Temperature 99.0 F 98.6 F Pulse Rate 80 82 Respiratory Rate 16 16 Blood Pressure 101/51 L 117/55 L Pulse Oximetry 93 L 93 L Intake & Output 07/30/18 07/31/18 07/31/18 18:59 06:59 18:59 Intake Total 1000 / 1000 1000 / 1000 Balance 1000 / 1000 1000 / 1000 Weight 69.853 kg Intake: IV 1000 / 1000 1000 / 1000 NS Inj 1,000 ML @ 100 mls/hr IV 1000 / 1000 .CONT .Q10H [facility] Rx#:[id number] NS Inj 1,000 ML @ Wide Open IV. 1000 / 1000 SIG BOLUS ONE Rx#:[id number] Other: # Voids 2 Narrative: GENERAL: Well-nourished, well-developed adult female in no obvious distress. SKIN: Warm and dry. HEAD: Atraumatic. Normocephalic. CARDIOVASCULAR: Regular rate and rhythm. RESPIRATORY: No accessory muscle use. Clear to auscultation. Breath sounds equal bilaterally. GASTROINTESTINAL: Abdomen soft, non-tender, non-distended. Positive bowel sounds. MUSCULOSKELETAL: Extremities without clubbing, cyanosis, or edema. No obvious deformities. NEUROLOGICAL: Awake and alert. No obvious cranial nerve deficits. Motor grossly within normal limits. Normal speech. PSYCHIATRIC: Appropriate mood and affect; insight and judgment good. Results Procedures completed during hospitalization: none Labs on day of discharge: Labs from last 24 hours 07/31/18 07/31/18 07/31/18 07:38 05:30 04:00 WBC RBC Hgb Hct MCV MCH MCHC RDW Plt Count MPV Neut % (Auto) Lymph % (Auto) [place] % (Auto) Eos % (Auto) Baso % (Auto) Neut # (Auto) Lymph # (Auto) [place] # (Auto) Eos # (Auto) Baso # (Auto) WBC Differential Differential Comment D-Dimer Quant (PE/DVT) Sodium Potassium Chloride Carbon Dioxide Anion Gap BUN Creatinine Estimated GFR POC Glucose 87 Random Glucose Hemoglobin A1c Pending Calcium Total Bilirubin AST ALT Alkaline Phosphatase Total Creatine Kinase Troponin I 0.13 H B-Natriuretic Peptide Total Protein Albumin Triglycerides Cholesterol LDL Cholesterol, Calc HDL Cholesterol Cholesterol/HDL Ratio TSH Urine Color Urine Clarity Urine pH Ur Specific [place] Urine Protein Urine Glucose (UA) Urine Ketones Urine Occult Blood Urine Nitrate Urine Bilirubin Urine Urobilinogen Ur Leukocyte Esterase Urine RBC Urine WBC Ur Squamous Epith Cells Hyaline Casts Urine Mucus Ur Microscopic Review 07/31/18 07/31/18 07/30/18 04:00 03:10 22:04 WBC 11.9 H RBC 4.24 Hgb 12.2 Hct 36.7 MCV 86.5 MCH 28.8 MCHC 33.3 RDW 13.6 Plt Count 164 MPV 10.4 Neut % (Auto) 78.2 H Lymph % (Auto) 13.0 [place] % (Auto) 8.0 Eos % (Auto) 0.1 Baso % (Auto) 0.7 Neut # (Auto) 9.3 H Lymph # (Auto) 1.5 [place] # (Auto) 0.9 Eos # (Auto) 0.0 Baso # (Auto) 0.1 WBC Differential . Differential Comment Auto diff final D-Dimer Quant (PE/DVT) Sodium 141 Potassium 3.7 Chloride 104 Carbon Dioxide 28.8 Anion Gap 8 BUN 33 H Creatinine 1.03 H Estimated GFR 55 L POC Glucose 353 H Random Glucose 171 H D Hemoglobin A1c Calcium 8.2 L D Total Bilirubin 0.4 AST 18 ALT 26 Alkaline Phosphatase 57 Total Creatine Kinase Troponin I 0.10 H B-Natriuretic Peptide Total Protein 5.6 L D Albumin 3.1 L D Triglycerides 38 L Cholesterol 106 L LDL Cholesterol, Calc 24 HDL Cholesterol 74.7 H Cholesterol/HDL Ratio 1.41 TSH 0.309 L Urine Color Urine Clarity Urine pH Ur Specific [place] Urine Protein Urine Glucose (UA) Urine Ketones Urine Occult Blood Urine Nitrate Urine Bilirubin Urine Urobilinogen Ur Leukocyte Esterase Urine RBC Urine WBC Ur Squamous Epith Cells Hyaline Casts Urine Mucus Ur Microscopic Review 07/30/18 07/30/18 07/30/18 22:00 20:35 20:35 WBC 16.0 H RBC 4.88 Hgb 13.8 Hct 42.8 MCV 87.8 MCH 28.3 MCHC 32.3 RDW 13.6 Plt Count 184 MPV 11.3 H Neut % (Auto) 88.5 H Lymph % (Auto) 6.3 L [place] % (Auto) 5.0 Eos % (Auto) 0.0 Baso % (Auto) 0.2 Neut # (Auto) 14.2 H Lymph # (Auto) 1.0 [place] # (Auto) 0.8 Eos # (Auto) 0.0 Baso # (Auto) 0.0 WBC Differential . Differential Comment Auto diff final D-Dimer Quant (PE/DVT) Sodium Potassium Chloride Carbon Dioxide Anion Gap BUN Creatinine Estimated GFR POC Glucose Random Glucose Hemoglobin A1c Calcium Total Bilirubin AST ALT Alkaline Phosphatase Total Creatine Kinase 119 Troponin I Less than 0.02 L B-Natriuretic Peptide 42 Total Protein Albumin Triglycerides Cholesterol LDL Cholesterol, Calc HDL Cholesterol Cholesterol/HDL Ratio TSH Urine Color Urine Clarity Urine pH Ur Specific [place] Urine Protein Urine Glucose (UA) Urine Ketones Urine Occult Blood Urine Nitrate Urine Bilirubin Urine Urobilinogen Ur Leukocyte Esterase Urine RBC Urine WBC Ur Squamous Epith Cells Hyaline Casts Urine Mucus Ur Microscopic Review 07/30/18 07/30/18 07/30/18 18:28 16:50 16:50 WBC RBC Hgb Hct MCV MCH MCHC RDW Plt Count MPV Neut % (Auto) Lymph % (Auto) [place] % (Auto) Eos % (Auto) Baso % (Auto) Neut # (Auto) Lymph # (Auto) [place] # (Auto) Eos # (Auto) Baso # (Auto) WBC Differential Differential Comment D-Dimer Quant (PE/DVT) 0.40 Sodium 140 Potassium 4.3 Chloride 97 L Carbon Dioxide 29.0 Anion Gap 14 BUN 36 H Creatinine 1.12 H Estimated GFR 50 L POC Glucose Random Glucose 355 H Hemoglobin A1c Calcium 9.3 Total Bilirubin 0.8 AST 27 ALT 32 Alkaline Phosphatase 74 Total Creatine Kinase Troponin I Less than 0.02 L B-Natriuretic Peptide Total Protein 7.6 Albumin 4.4 Triglycerides Cholesterol LDL Cholesterol, Calc HDL Cholesterol Cholesterol/HDL Ratio TSH Urine Color Yellow Urine Clarity Clear Urine pH 5.0 Ur Specific [place] 1.013 Urine Protein Negative Urine Glucose (UA) 500 or greater Urine Ketones 80 or greater H Urine Occult Blood Negative Urine Nitrate Negative Urine Bilirubin Negative Urine Urobilinogen Less than 2 Ur Leukocyte Esterase Negative Urine RBC Less than 1 Urine WBC Less than 1 Ur Squamous Epith Cells <1 Hyaline Casts 4 Urine Mucus Few H Ur Microscopic Review Not Reportable 07/30/18 16:50 WBC 18.4 H RBC 5.26 Hgb 15.6 H Hct 46.3 H MCV 87.9 MCH 29.7 MCHC 33.8 RDW 13.4 Plt Count 191 MPV 11.8 H Neut % (Auto) 85.8 H Lymph % (Auto) 8.1 L [place] % (Auto) 5.6 Eos % (Auto) 0.2 Baso % (Auto) 0.3 Neut # (Auto) 15.8 H Lymph # (Auto) 1.5 [place] # (Auto) 1.0 H Eos # (Auto) 0.0 Baso # (Auto) 0.0 WBC Differential . Differential Comment Auto diff final D-Dimer Quant (PE/DVT) Sodium Potassium Chloride Carbon Dioxide Anion Gap BUN Creatinine Estimated GFR POC Glucose Random Glucose Hemoglobin A1c Calcium Total Bilirubin AST ALT Alkaline Phosphatase Total Creatine Kinase Troponin I B-Natriuretic Peptide Total Protein Albumin Triglycerides Cholesterol LDL Cholesterol, Calc HDL Cholesterol Cholesterol/HDL Ratio TSH Urine Color Urine Clarity Urine pH Ur Specific [place] Urine Protein Urine Glucose (UA) Urine Ketones Urine Occult Blood Urine Nitrate Urine Bilirubin Urine Urobilinogen Ur Leukocyte Esterase Urine RBC Urine WBC Ur Squamous Epith Cells Hyaline Casts Urine Mucus Ur Microscopic Review - Impressions ITS Impressions Chest X-Ray 07/30/18 14:09 CONCLUSION: 1. No acute cardiopulmonary disease. Head CT 07/30/18 16:45 CONCLUSION: 1. Negative CT Head non contrast. 2. No evidence of acute infarct, hemorrhage, mass or edema. . Chest CTA 07/30/18 19:02 CONCLUSION: Unremarkable study. Neck CTA 07/30/18 19:02 CONCLUSION: 1. Focal atherosclerotic plaque of the carotid bifurcations, mild on the right and trace on the left. No hemodynamically significant narrowing. 2. No dissection. Discharge Plan - Discharge Disposition Patient Disposition: 01 Discharge Home - Discharge Condition Condition: Stable - Discharge Order Discharge Orders: Discharge Order (Routine); Ordered 07/31/18 Ordered By: Tiff Bob - Physicians Team Primary Care Provider: Lloyd Dutta Attending Provider: Melvin Dash Other Providers: Vangie Thomas MD
[2018-07-31] MEDS: Furosemide 20 MG Tablet PO SCH (14:54)
[2018-08-01] MEDS: Sod Chloride 0.9% Inj 1,000 ML IV.CONT SCH (03:10)
--- NOTE | 2018-08-01 07:28 | P.PNCA ---
Subjective Interval history: Patient resting in bed this a.m. She denies any acute complaints overnight. She does admit to occasional discomfort across her chest, has occurred at rest, she reports she noticed it more after drinking a cup of coffee. She denies any chest pain or shortness of breath when ambulating to the bathroom. Dr. Palomino will see patient in the morning. Medications and Allergies Allergies Allergy/AdvReac Type Severity Reaction Status Date / Time No Known Allergies Allergy Verified 07/30/18 16:17 Home Medications Medication Instructions Recorded Confirmed Type atorvastatin [Lipitor] 40 mg PO DAILY 07/30/18 07/30/18 History furosemide [Lasix] 20 mg PO DAILY 07/30/18 07/30/18 History insulin aspart U-100 [Novolog 1 sliding scale dose SUBCUT UD 07/30/18 07/30/18 History U-100 Insulin aspart] losartan-hydrochlorothiazide 1 tab PO DAILY 07/30/18 07/30/18 History [Hyzaar] Active Medications: Active Medications Acetaminophen (Tylenol) 650 mg PO Q4H PRN PRN Reason: Temp > 100.4 Al Hydroxide/Mg Hydroxide (Milk Of Magnesia Liq) 30 ml PO Q12H PRN PRN Reason: Mild Constipation Aspirin (Ecotrin) 81 mg PO DAILY [facility] Last Admin: 07/31/18 10:07 Dose: 81 mg Bisacodyl (Dulcolax Supp) 10 mg RECTAL DAILY PRN PRN Reason: SEVERE CONSITIPATION Dextrose (D50w Vial) 50 ml IV.PUSH UNSCH PRN PRN Reason: PER HYPOGLYCEMIA PROTOCOL Furosemide (Lasix) 20 mg PO DAILY [facility] Last Admin: 07/31/18 14:54 Dose: Not Given Glucagon (Glucagon Inj) 1 mg OTHER PRN PRN PRN Reason: for Hypoglycemia Protocol Sodium Chloride (Ns Inj) 1,000 mls @ 100 mls/hr IV.CONT .Q10H [facility] Last Infusion: 08/01/18 06:40 Dose: 0 mls/hr Lactulose (Lactulose Liq) 30 ml PO DAILY PRN PRN Reason: SEVERE CONSITIPATION Metoprolol Tartrate (Lopressor) 25 mg PO BID [facility] Last Admin: 07/31/18 20:39 Dose: Not Given Morphine Sulfate (Morphine Inj) 2 mg IV.PUSH Q4H PRN PRN Reason: PAIN 6-10 Nitroglycerin (Nitro-Bid 2% Oint) 0.5 inch TOPICAL Q6HR PRN PRN Reason: CHEST PAIN Ondansetron HCl (Zofran Inj) 4 mg IV.PUSH Q6H PRN PRN Reason: NAUSEA OR VOMITING Pravastatin Sodium (Pravachol) 40 mg PO DAILY [facility] Last Admin: 07/31/18 10:07 Dose: 40 mg Senna/Docusate Sodium (Helen-Colace) 1 tab PO BID [facility] Last Admin: 07/31/18 20:39 Dose: Not Given Sennosides (Senokot) 17.2 mg PO Q12H PRN PRN Reason: Moderate Constipation Sodium Chloride (Ns Flush) 2 ml IV.FLUSH BID [facility] Last Admin: 07/31/18 20:40 Dose: Not Given Sodium Chloride (Ns Flush) 2 ml IV.FLUSH PRN PRN PRN Reason: FLUSH AFTER USING IV ACCESS Physical Exam Vital signs: Vital Signs 07/31/18 08:00 07/31/18 11:14 07/31/18 12:00 Temperature 98.6 F Pulse Rate 84 82 77 Respiratory Rate 16 Blood Pressure 117/55 L Pulse Oximetry 93 L 07/31/18 16:00 07/31/18 19:12 07/31/18 20:00 Temperature 99.0 F 98.1 F Pulse Rate 74 75 72 Respiratory Rate 16 16 Blood Pressure 103/51 L 129/73 Pulse Oximetry 95 95 08/01/18 00:00 08/01/18 03:23 Temperature 98.0 F 98.2 F Pulse Rate 66 63 Respiratory Rate 16 17 Blood Pressure 115/65 141/63 H Pulse Oximetry 98 95 Intake & Output 07/31/18 08/01/18 08/01/18 18:59 06:59 18:59 Intake Total 1000 / 999 Balance 999 / 999 Intake: IV 1000 / 1000 1999 NS Inj 1,000 ML @ 100 mls/hr IV 999 .CONT .Q10H [facility] Rx#:[id number] Other: # Voids 1 3 Date of Last Bowel Movement 07/31/18 - Constitutional no acute distress, average body habitus, cooperative - Routine HEENT Exam Head: Present: normocephalic, atraumatic Eye: Present: EOMI, PERRL, normal accommodation ENT: Present: mucous membranes moist - Routine Neck Exam Present: supple - Routine Respiratory Exam Present: CTA bilaterally - Routine Cardiovascular Exam Present: RRR - Routine Abdominal Exam Present: soft - Routine Skin Exam Present: intact - Routine Neurological Exam Present: alert, oriented X3 - Detailed Neurological Exam: Coma Scale Eye Opening: Spontaneous Verbal Response: Oriented Motor Response: Obey commands [place] Coma Scale Total: 15 - Routine Psychiatric Exam Present: normal affect Results 07/31/18 04:00 07/31/18 03:10 Cardiac Enzymes 07/30/18 07/30/18 07/30/18 Range/Units 16:50 20:35 22:00 AST 27 (15-37) U/L Troponin I Less than 0.02 L Less than 0.02 L (0.02-0.05) ng/mL B-Natriuretic Peptide 42 (0-100) pg/mL 07/31/18 07/31/18 Range/Units 03:10 05:30 AST 18 (15-37) U/L Troponin I 0.10 H 0.13 H (0.02-0.05) ng/mL B-Natriuretic Peptide (0-100) pg/mL Coagulation 07/30/18 Range/Units 20:35 B-Natriuretic Peptide 42 (0-100) pg/mL Lipids 07/31/18 Range/Units 03:10 Triglycerides 38 L (42-150) mg/dL Cholesterol 106 L (120-200) mg/dL HDL Cholesterol 74.7 H (40.0-60.0) mg/dL Cholesterol/HDL Ratio 1.41 Ratio CBC 07/30/18 07/30/18 07/31/18 Range/Units 16:50 20:35 04:00 WBC 18.4 H 16.0 H 11.9 H (4.0-11.0) th/mm3 RBC 5.26 4.88 4.24 (4.00-5.30) mil/mm3 Hgb 15.6 H 13.8 12.2 (11.6-15.3) gm/dL Hct 46.3 H 42.8 36.7 (35.0-46.0) % Plt Count 191 184 164 (150-450) th/mm3 Neut # (Auto) 15.8 H 14.2 H 9.3 H (1.8-7.7) th/mm3 Lymph # (Auto) 1.5 1.0 1.5 (1.0-4.8) th/mm3 [place] # (Auto) 1.0 H 0.8 0.9 (0.0-0.9) th/mm3 Eos # (Auto) 0.0 0.0 0.0 (0.0-0.4) th/mm3 Baso # (Auto) 0.0 0.0 0.1 (0.0-0.2) th/mm3 Comprehensive Metabolic Panel 07/30/18 07/31/18 Range/Units 16:50 03:10 Sodium 140 141 (136-145) meq/L Potassium 4.3 3.7 (3.5-5.1) meq/L Chloride 97 L 104 (98-107) meq/L Carbon Dioxide 29.0 28.8 (21.0-32.0) meq/L BUN 36 H 33 H (7-18) mg/dL Creatinine 1.12 H 1.03 H (0.50-1.00) mg/dL Calcium 9.3 8.2 L D (8.5-10.1) mg/dL AST 27 18 (15-37) U/L ALT 32 26 (10-53) U/L Alkaline Phosphatase 74 57 (45-117) U/L Total Protein 7.6 5.6 L D (6.4-8.2) g/dL Albumin 4.4 3.1 L D (3.4-5.0) g/dL Intake and Output 07/31/18 08/01/18 08/01/18 22:59 06:59 14:59 Intake Total 1000 / 1000 1000 / 1000 Balance 1000 / 1000 1000 / 1000 Intake: IV 1000 / 1000 1000 / 1000 NS Inj 1,000 ML @ 100 mls/hr IV 1000 / 1000 1000 / 1000 .CONT .Q10H [facility] Rx#:[id number] Other: # Voids 1 3 Date of Last Bowel Movement 07/31/18 - Imaging and Cardiology Imaging: Impressions Chest X-Ray 07/30/18 14:09 CONCLUSION: 1. No acute cardiopulmonary disease. Head CT 07/30/18 16:45 CONCLUSION: 1. Negative CT Head non contrast. 2. No evidence of acute infarct, hemorrhage, mass or edema. . Chest CTA 07/30/18 19:02 CONCLUSION: Unremarkable study. Neck CTA 07/30/18 19:02 CONCLUSION: 1. Focal atherosclerotic plaque of the carotid bifurcations, mild on the right and trace on the left. No hemodynamically significant narrowing. 2. No dissection. Assessment and Plan - Plan Assessment Non-STEMI ASHD Diabetes Tachycardia Hypertension Plan -Currently chest pain-free, no acute EKG changes, will keep on low dose aspirin , low-dose beta-alejandra, and statin. Dr. Henao will see patient in AM to decide in he wants to proceed with heart cath, NUC or Medical management. -CTA ruled out PE. Has NSTEMI, chest pain and h/o stents , will defer to Dr Henao cath vs ETT or nuclear Patient was seen and evaluated by Dr. Thomas who participated in care management and decision making. The exam, history, and the medical decision-making described in the above note were completed with the assistance of the mid-level provider. I reviewed and agree with the findings presented. I attest that I had a [id number] encounter with the patient on the same day, and personally performed and documented my assessment and findings in the medical record. has h/o juvenile diabetes continues to have chest pain, with episode yesterday. Code Status: Full code Discussed Condition With: Dr. Thomas, RN
[2018-08-01] MEDS: Furosemide 20 MG Tablet PO SCH (09:26)
[2018-08-01] MEDS: Metoprolol Tartrate 25 MG Tablet PO SCH ×2 (09:26→20:56)
[2018-08-01] MEDS: Senna/Docusate Sodium 8.6/50 MG Tablet PO SCH ×2 (09:27→20:56)
--- NOTE | 2018-08-01 10:17 | ECG ---
Date Performed: 08/01/2018 Time Performed: 03:12:32 PTAGE: 57 years EKG: Sinus rhythm LEFT BUNDLE BRANCH BLOCK ABNORMAL ECG No significant change from prior electrocardiogram. PREVIOUS TRACING : 07/31/2018 05.34 DOCTOR: Serg Sheets Interpretating Date/Time 08/01/2018 10:15:48
[2018-08-01 11:42] LABS: Hemoglobin A1c 7.4 % (4.3-6.0)
--- NOTE | 2018-08-01 15:27 | P.PN ---
Subjective Interval history: Patient is seen sitting up in bed. Her is at bedside. She has had no repeat episodes of chest pain. No shortness of breath. No syncope, dizziness. Physical Exam Vital signs: Vital Signs 07/31/18 16:00 07/31/18 19:12 07/31/18 20:00 Temperature 99.0 F 98.1 F Pulse Rate 74 75 72 Respiratory Rate 16 16 Blood Pressure 103/51 L 129/73 Pulse Oximetry 95 95 08/01/18 00:00 08/01/18 03:23 08/01/18 07:23 Temperature 98.0 F 98.2 F 98.3 F Pulse Rate 66 63 63 Respiratory Rate 16 17 16 Blood Pressure 115/65 141/63 H 138/66 Pulse Oximetry 98 95 95 08/01/18 08:00 08/01/18 12:00 Temperature 97.7 F Pulse Rate 60 62 Respiratory Rate 16 Blood Pressure 168/74 H Pulse Oximetry 99 Intake & Output 07/31/18 08/01/18 08/01/18 18:59 06:59 18:59 Intake Total 1000 / 1000 1999 Balance 1000 / 1000 1999 Intake: IV 1000 / 1000 1999 NS Inj 1,000 ML @ 100 mls/hr IV 1000 / 1000 1999 .CONT .Q10H [facility] Rx#:[id number] Other: # Voids 1 3 Date of Last Bowel Movement 07/31/18 07/31/18 Narrative: GENERAL: Well-nourished, well-developed adult female in no obvious distress. SKIN: Warm and dry. HEAD: Atraumatic. Normocephalic. CARDIOVASCULAR: Regular rate and rhythm. RESPIRATORY: No accessory muscle use. Clear to auscultation. Breath sounds equal bilaterally. GASTROINTESTINAL: Abdomen soft, non-tender, non-distended. Positive bowel sounds. MUSCULOSKELETAL: Extremities without clubbing, cyanosis, or edema. No obvious deformities. NEUROLOGICAL: Awake and alert. No obvious cranial nerve deficits. Motor grossly within normal limits. Normal speech. PSYCHIATRIC: Appropriate mood and affect; insight and judgment good. Results - Labs CBC & Chem 7: 07/31/18 04:00 07/31/18 03:10 Laboratory Results - last 24 hr 07/31/18 07/31/18 07/31/18 04:00 16:51 20:01 POC Glucose 170 H 158 H Hemoglobin A1c 7.4 H Troponin I 08/01/18 08/01/18 08:17 11:40 POC Glucose 108 Hemoglobin A1c Troponin I 0.14 H - Procedures none Assessment and Plan - Assessment (1) Chest pain Code(s): R07.9 - Chest pain, unspecified Status: Resolved (2) Tachycardia Code(s): R00.0 - Tachycardia, unspecified Status: Resolved (3) Renal insufficiency Code(s): N28.9 - Disorder of kidney and ureter, unspecified Status: Resolved (4) Leukocytosis Code(s): D72.829 - Elevated white blood cell count, unspecified Status: Resolved (5) DM (diabetes mellitus) Code(s): E11.9 - Type 2 diabetes mellitus without complications Status: Chronic - Plan A/P: 1. Chest Pain: acute onset of chest pain, h/o CAD s/p stent x3 in the past, initial trop negative, EKG w/ no acute ischemia. Admit for Observation, telemetry, check serial cardiac enzymes, check lipid profile/Hgb A1c. Morphine/ NTG prn. Follows w/ Dr. Henao, last stress 2016 normal per patient. CXR negative, CTA Chest w/ no acute findings, CTA Neck w/ mild plaque carotid bifurcation, images reviewed. Patient evaluated by cardiology who recommends possible heart cath on Thursday 08/02. 2. Tachycardia: c/o palpitations, HR 100-120's while in ER, s/p IVF, unclear etiology. Check TSH. Telemetry. Check Echo to eval for underlying cardiomyopathy. Resolved. 3. Leukocytosis: WBC 18, repeat WBC 16, unclear etiology, no evidence of infection, U/a negative, CXR/CTA Chest negative as well, images reviewed. Will hold antibiotics at this time as no clear etiology, repeat labs in am, monitor closely. Leukocytosis improved with a.m. labs. Likely cardiac rather than infectious. 4. Renal Insufficiency: Creatinine 1.12, previously 0.96 on 02/2018, U/a negative for UTI, IVF, monitor I/O, repeat labs in am. Improving. 5. DM: +insulin pump, will continue, check Accu-Cheks, Check Hgb A1c. 6. DVT Prophylaxis: SCD/Teds
[2018-08-02 04:39] LABS: Baso % (Auto) 0.4 % (0.0-2.0); Eos # (Auto) 0.2 th/mm3 (0.0-0.4); Eos % (Auto) 3.1 % (0.0-4.0); Hematocrit 36.1 % (35.0-46.0); Hemoglobin 12.3 gm/dL (11.6-15.3); Lymph # (Auto) 2.2 th/mm3 (1.0-4.8); Lymph % (Auto) 42.8 % (9.0-44.0); Mean Corpuscular HGB Conc 34.2 % (32.0-36.0); Mean Corpuscular Hemoglobin 29.3 pg (27.0-34.0); Mean Corpuscular Volume 85.6 fL (80.0-100.0); Mean Platelet Volume 9.9 fL (7.0-11.0); Mono # (Auto) 0.4 th/mm3 (0.0-0.9); Mono % (Auto) 8.5 % (0.0-8.0); Neut # (Auto) 2.3 th/mm3 (1.8-7.7); Neut % (Auto) 45.2 % (16.0-70.0); Platelet Count 133 th/mm3 (150-450); Red Blood Count 4.22 mil/mm3 (4.00-5.30); Red Cell Distribution Width 13.5 % (11.6-17.2); White Blood Count 5.1 th/mm3 (4.0-11.0)
[2018-08-02 04:43] LABS: Activated Partial Thrombo Time 26.6 sec (23.4-31.7); Prothrombin Time 10.4 sec (9.8-11.6)
[2018-08-02 05:04] LABS: Carbon Dioxide 28.9 meq/L (21.0-32.0); Potassium 3.9 meq/L (3.5-5.1)
--- NOTE | 2018-08-02 07:58 | P.PNCA ---
Subjective Interval history: Doing well. No further CO or SOB. Records and test reilts reviewed. Medications and Allergies Active Medications: Active Medications Acetaminophen (Tylenol) 650 mg PO Q4H PRN PRN Reason: Temp > 100.4 Al Hydroxide/Mg Hydroxide (Milk Of Magnesia Liq) 30 ml PO Q12H PRN PRN Reason: Mild Constipation Aspirin (Ecotrin) 81 mg PO DAILY [facility] Last Admin: 08/01/18 09:27 Dose: 81 mg Bisacodyl (Dulcolax Supp) 10 mg RECTAL DAILY PRN PRN Reason: SEVERE CONSITIPATION Dextrose (D50w Vial) 50 ml IV.PUSH UNSCH PRN PRN Reason: PER HYPOGLYCEMIA PROTOCOL Furosemide (Lasix) 20 mg PO DAILY [facility] Last Admin: 08/01/18 09:26 Dose: 20 mg Glucagon (Glucagon Inj) 1 mg OTHER PRN PRN PRN Reason: for Hypoglycemia Protocol Sodium Chloride (Ns Inj) 1,000 mls @ 30 mls/hr IV.CONT .Q24H [facility] Lactulose (Lactulose Liq) 30 ml PO DAILY PRN PRN Reason: SEVERE CONSITIPATION Metoprolol Tartrate (Lopressor) 25 mg PO BID [facility] Last Admin: 08/01/18 20:56 Dose: 25 mg Morphine Sulfate (Morphine Inj) 2 mg IV.PUSH Q4H PRN PRN Reason: PAIN 6-10 Nitroglycerin (Nitro-Bid 2% Oint) 0.5 inch TOPICAL Q6HR PRN PRN Reason: CHEST PAIN Ondansetron HCl (Zofran Inj) 4 mg IV.PUSH Q6H PRN PRN Reason: NAUSEA OR VOMITING Pravastatin Sodium (Pravachol) 40 mg PO DAILY [facility] Last Admin: 08/01/18 09:26 Dose: 40 mg Senna/Docusate Sodium (Helen-Colace) 1 tab PO BID [facility] Last Admin: 08/01/18 20:56 Dose: Not Given Sennosides (Senokot) 17.2 mg PO Q12H PRN PRN Reason: Moderate Constipation Sodium Chloride (Ns Flush) 2 ml IV.FLUSH BID [facility] Last Admin: 08/01/18 20:56 Dose: 2 ml Sodium Chloride (Ns Flush) 2 ml IV.FLUSH PRN PRN PRN Reason: FLUSH AFTER USING IV ACCESS Allergies Allergy/AdvReac Type Severity Reaction Status Date / Time No Known Allergies Allergy Verified 07/30/18 16:17 Home Medications Medication Instructions Recorded Confirmed Type atorvastatin [Lipitor] 40 mg PO DAILY 07/30/18 07/30/18 History furosemide [Lasix] 20 mg PO DAILY 07/30/18 07/30/18 History insulin aspart U-100 [Novolog 1 sliding scale dose SUBCUT UD 07/30/18 07/30/18 History U-100 Insulin aspart] losartan-hydrochlorothiazide 1 tab PO DAILY 07/30/18 07/30/18 History [Hyzaar] Physical Exam Vital signs: Vital Signs 08/01/18 08:00 08/01/18 12:00 08/01/18 15:28 Temperature 97.7 F 97.8 F Pulse Rate 60 62 61 Respiratory Rate 16 16 Blood Pressure 168/74 H 159/72 H Pulse Oximetry 99 98 08/01/18 20:00 08/02/18 00:00 08/02/18 04:00 Temperature 98.0 F 97.8 F 97.8 F Pulse Rate 95 H 53 L 59 L Respiratory Rate 18 16 15 Blood Pressure 161/76 H 121/65 130/69 Pulse Oximetry 95 98 97 Intake & Output 08/01/18 08/02/18 08/02/18 18:59 06:59 18:59 Intake Total Balance Intake: IV NS Inj 1,000 ML @ 100 mls/hr IV .CONT .Q10H [facility] Rx#:[id number] Other: # Voids 10 2 Date of Last Bowel Movement 07/31/18 07/31/18 - Constitutional no acute distress - Routine Neck Exam Present: supple - Routine Respiratory Exam Present: CTA bilaterally - Routine Cardiovascular Exam Present: RRR, S1, S2. Absent: murmur - Routine Extremities Exam Present: pulses intact - Routine Skin Exam Present: intact - Routine Neurological Exam Present: alert, oriented X3 Results 08/02/18 03:40 08/02/18 03:40 Cardiac Enzymes 08/01/18 Range/Units 11:40 Troponin I 0.14 H (0.02-0.05) ng/mL Coagulation 08/02/18 Range/Units 03:40 PT 10.4 (9.8-11.6) sec APTT 26.6 (23.4-31.7) sec CBC 08/02/18 Range/Units 03:40 WBC 5.1 (4.0-11.0) th/mm3 RBC 4.22 (4.00-5.30) mil/mm3 Hgb 12.3 (11.6-15.3) gm/dL Hct 36.1 (35.0-46.0) % Plt Count 133 L (150-450) th/mm3 Neut # (Auto) 2.3 (1.8-7.7) th/mm3 Lymph # (Auto) 2.2 (1.0-4.8) th/mm3 [place] # (Auto) 0.4 (0.0-0.9) th/mm3 Eos # (Auto) 0.2 (0.0-0.4) th/mm3 Baso # (Auto) 0.0 (0.0-0.2) th/mm3 Comprehensive Metabolic Panel 08/02/18 Range/Units 03:40 Sodium 147 H (136-145) meq/L Potassium 3.9 (3.5-5.1) meq/L Chloride 111 H (98-107) meq/L Carbon Dioxide 28.9 (21.0-32.0) meq/L BUN 17 (7-18) mg/dL Creatinine 0.81 (0.50-1.00) mg/dL Calcium 8.0 L (8.5-10.1) mg/dL Intake and Output 08/01/18 08/02/18 08/02/18 22:59 06:59 14:59 Other: # Voids 10 2 Date of Last Bowel Movement 07/31/18 Assessment and Plan - Assessment (1) Arteriosclerotic heart disease (ASHD) Code(s): I25.10 - Atherosclerotic heart disease of [place] coronary artery without angina pectoris Status: Chronic (2) Troponin level elevated Code(s): R74.8 - Abnormal levels of other serum enzymes Status: Acute (3) Left bundle branch block (LBBB) Code(s): I44.7 - Left bundle-branch block, unspecified Status: Chronic (4) DM (diabetes mellitus) Code(s): E11.9 - Type 2 diabetes mellitus without complications Status: Chronic - Plan Assessment Non-STEMI ASHD Diabetes Tachycardia Hypertension Plan Currently asymptomatic. Troponins are indeterminately elevated. Considering her history and high risk I have recommended we proceed to cardiac cath for further evaluation. Resume all home meds. Scheduled for this afternoon. Reduce insulin by 50% and may have lite breakfast. Indications, benefits risks and alternatives discussed. See orders and consents.
[2018-08-02] MEDS ORDERED: Sod Chloride 0.9% Inj 1,000 ML IV.CONT SCH ×2 (08:00→16:00)
[2018-08-02] MEDS: Furosemide 20 MG Tablet PO SCH (09:14)
[2018-08-02] MEDS: Senna/Docusate Sodium 8.6/50 MG Tablet PO SCH (09:15)
[2018-08-02] MEDS: Metoprolol Tartrate 25 MG Tablet PO SCH (09:15)
[2018-08-02 11:25] VITALS: BP 137/65; PULSE 57; RESP 18; TEMP 98.5
--- NOTE | 2018-08-02 13:25 | P.PN ---
Subjective Interval history: Follow up for CP: seen and examined, NPO, going for cardiac cath today. No cp, no sob, no tachycardia. Ate light breakfast as instructed. Insulin pump dec. by 50%. No acute changes overnight Physical Exam Vital signs: Vital Signs 08/01/18 15:28 08/01/18 20:00 08/02/18 00:00 Temperature 97.8 F 98.0 F 97.8 F Pulse Rate 61 95 H 53 L Respiratory Rate 16 18 16 Blood Pressure 159/72 H 161/76 H 121/65 Pulse Oximetry 98 95 98 08/02/18 04:00 08/02/18 08:00 08/02/18 11:23 Temperature 97.8 F 98 F 98.5 F Pulse Rate 59 L 60 57 L Respiratory Rate 15 16 18 Blood Pressure 130/69 141/65 H 137/65 Pulse Oximetry 97 97 94 L Intake & Output 08/01/18 08/02/18 08/02/18 18:59 06:59 18:59 Intake Total 205 / 205 240 / 240 Balance 205 / 205 240 / 240 Intake: IV 205 / NS Inj 1,000 ML @ 100 mls/hr IV 205 / 205 .CONT .Q10H [facility] Rx#:[id number] Oral 240 / 240 Other: # Voids 10 2 Date of Last Bowel Movement 07/31/18 07/31/18 Narrative: GENERAL: Well-nourished, well-developed adult female in no obvious distress. SKIN: Warm and dry. HEAD: Atraumatic. Normocephalic. CARDIOVASCULAR: Regular rate and rhythm. RESPIRATORY: No accessory muscle use. Clear to auscultation. Breath sounds equal bilaterally. GASTROINTESTINAL: Abdomen soft, non-tender, non-distended. Positive bowel sounds. MUSCULOSKELETAL: Extremities without clubbing, cyanosis, or edema. No obvious deformities. NEUROLOGICAL: Awake and alert. No obvious cranial nerve deficits. Motor grossly within normal limits. Normal speech. PSYCHIATRIC: Appropriate mood and affect; insight and judgment good. Results - Labs CBC & Chem 7: 08/02/18 03:40 08/02/18 03:40 Laboratory Results - last 24 hr 08/01/18 08/01/18 08/02/18 17:24 22:12 03:40 WBC 5.1 RBC 4.22 Hgb 12.3 Hct 36.1 MCV 85.6 MCH 29.3 MCHC 34.2 RDW 13.5 Plt Count 133 L MPV 9.9 Neut % (Auto) 45.2 Lymph % (Auto) 42.8 [place] % (Auto) 8.5 H Eos % (Auto) 3.1 Baso % (Auto) 0.4 Neut # (Auto) 2.3 Lymph # (Auto) 2.2 [place] # (Auto) 0.4 Eos # (Auto) 0.2 Baso # (Auto) 0.0 WBC Differential . Differential Comment Auto diff final PT INR APTT Sodium Potassium Chloride Carbon Dioxide Anion Gap BUN Creatinine Estimated GFR POC Glucose 63 L 130 H Random Glucose Calcium Beta HCG, Quant 08/02/18 08/02/18 03:40 03:40 WBC RBC Hgb Hct MCV MCH MCHC RDW Plt Count MPV Neut % (Auto) Lymph % (Auto) [place] % (Auto) Eos % (Auto) Baso % (Auto) Neut # (Auto) Lymph # (Auto) [place] # (Auto) Eos # (Auto) Baso # (Auto) WBC Differential Differential Comment PT 10.4 INR 1.0 APTT 26.6 Sodium 147 H Potassium 3.9 Chloride 111 H Carbon Dioxide 28.9 Anion Gap 7 BUN 17 Creatinine 0.81 Estimated GFR 73 L POC Glucose Random Glucose 107 H Calcium 8.0 L Beta HCG, Quant 2 - Procedures none Assessment and Plan - Assessment (1) Chest pain Code(s): R07.9 - Chest pain, unspecified Status: Resolved (2) Tachycardia Code(s): R00.0 - Tachycardia, unspecified Status: Resolved (3) Renal insufficiency Code(s): N28.9 - Disorder of kidney and ureter, unspecified Status: Resolved (4) Leukocytosis Code(s): D72.829 - Elevated white blood cell count, unspecified Status: Resolved (5) DM (diabetes mellitus) Code(s): E11.9 - Type 2 diabetes mellitus without complications Status: Chronic (6) Coronary artery disease Code(s): I25.10 - Atherosclerotic heart disease of [place] coronary artery without angina pectoris Status: Chronic (7) Hx of heart artery stent Code(s): Z95.5 - Presence of coronary angioplasty implant and graft Status: Chronic - Plan 57-year-old female with a PMH of HTN, Hyperlipidemia, CAD s/p Stent x3 and DM who presented to the ER w/ complaints of chest pain and palpitations starting earlier today. Chest Pain: acute onset of chest pain, h/o CAD s/p stent x3 in the past CTA chest no acute findings CTA neck with mild plaque carotid bifurcation Serial troponin done, trended up. Chest pain free now -continue ASA, BB, Lipitor -Nitroglycerin PRN -Appreciate card input -for cardiac cath today, f/u results Tachycardia: c/o palpitations, HR 100-120's while in ER, s/p IVF, unclear etiology Tachycardia resolved, heart rate 60s -TSH okay Echo done, EF 55-60% -Continuous cardiac telemetry Continue with beta-blockers Leukocytosis: WBC 18, unclear etiology, no evidence of infection U/a negative CXR/CTA Chest negative -Will hold antibiotics at this time as no clear etiology -WBC trending down, no fever Hypertension -Continue with beta-alejandra, Lasix Hyperlipidemia -continue statins Renal Insufficiency: Creatinine 1.12, previously 0.96 on 02/2018 U/a negative for UTI -was given IVF -renal function stable DM: +insulin pump -Continue Accu-Cheks -Hgb A1c 7.4 DVT Prophylaxis: SCD/Teds Will f/u results of cath, poss dc today or tomorrow depending on findings. Code Status: Full code Discussed Condition With: RN, pt, CM Discharge Planning: Poss dc later today if cath negative (1) Chest pain Qualifiers: Chest pain type: unspecified Qualified Code(s): R07.9 - Chest pain, unspecified (5) DM (diabetes mellitus) Qualifiers: Diabetes mellitus type: type 2 Diabetes mellitus mcc insulin use: unspecified intermediate teacher insulin use status Diabetes mellitus complication status : with circulatory complication Diabetes mellitus complication detail: with other circulatory complications Qualified Code(s): E11.59 - Type 2 diabetes mellitus with other circulatory complications (6) Coronary artery disease Qualifiers: Coronary Disease-Associated Artery/Lesion type: unspecified vessel or lesion type Associated angina: with unstable angina
[2018-08-02] MEDS ORDERED: Heparin/NS PF Inj 1,500 ML ONE (14:21)
[2018-08-02] MEDS ORDERED: Heparin 10,000 UNITS/10 ML Vial (for IV use) ONE (14:25)
[2018-08-02] MEDS ORDERED: fentaNYL Citrate Inj 100 MCG/2 ML Ampul ONE (14:33)
[2018-08-02] MEDS ORDERED: Bacitracin Oint 0.9 GM Packet TOPICAL ONE (16:00)
[2018-08-02 16:23] VITALS: O2SAT 95
--- NOTE | 2018-08-02 16:38 | MP ---
cc: Valdez Barrera MD DATE OF OPERATION: 08/02/2018 DATE OF PROCEDURE: 08/02/2018 PROCEDURES PERFORMED: 1. Left heart catheterization. 2. Selective coronary artery angiography. 3. Left ventriculography. 4. Attempted Vascade arterial closure, right femoral artery. PROCEDURE TECHNIQUE: The patient was brought to the cardiac catheterization laboratory after informed consent. The area of the right radial artery and the right groin were prepped and draped in the usual sterile manner. Initially, following 5 mL of 1% Xylocaine in the right wrist, the right radial artery was entered with a needle for placement of a 6-Algerian short introducer sheath. The sheath was placed without difficulty and the dilator and wire removed. My standard cocktail was infused. The left heart catheterization was initially started and partially performed via the right radial approach using a TIG catheter and multiple other catheters including a multipurpose A2, multipurpose B2, AL1.0, 2.0, guiding catheters and diagnostic catheters which were only able to cannulate the right coronary artery and selectively cannulate the circumflex artery, but not the LAD. Because of this, it was decided to proceed with the remainder of the cardiac catheterization through the right femoral approach. That had been previously prepped and draped and 10 mL of 1% Xylocaine was given for local anesthesia. The right femoral artery was entered with an 18-gauge needle through placement of a floppy J-tip wire and a short 6-Algerian introducer sheath was placed in the right femoral artery via the modified Seldinger technique. Through this introducer sheath, a JL4 diagnostic catheter was passed to the left coronary artery and easily cannulated the left main coronary artery, which is a very short vessel, which the LAD and circumflex essentially had separate ostia. It was noted that the LAD and circumflex essentially share a single ostium. Multiple projections of the left coronary artery were taken. This catheter was then removed and the left ventriculogram was performed with a 6-Algerian angled pigtail in the JAY 30-degree projection only. At completion of the procedure, the diagnostic catheters and introducers were removed and adequate hemostasis was maintained with use of manual pressure. Initially, a Vascade device was attempted to use in the right femoral artery when the femoral angiogram indicated an excellent position of the catheter, but unfortunately this device failed and was removed completely and manual pressure was maintained. The patient tolerated the procedure well. There were no immediate complications. Plans will be for discharge to home later tonight when ambulatory and stable. HEMODYNAMIC DATA: Left ventricle 139/12 mmHg. Aorta 139/56 mmHg. The mean arterial pressure of 85 mmHg. There was no gradient across the aortic valve. For complete hemodynamic details, please see accompanying paperwork. ANGIOGRAPHIC FINDINGS: LEFT VENTRICLE: Left ventricle demonstrates normal end-systolic and diastolic dimensions. Overall, left ventricular contractility is normal. Estimated left ventricular ejection fraction is 65%. No regional wall motion abnormalities are identified. There is no mitral regurgitation. The aortic valve is trileaflet and opens normally. The aortic root and proximal portion of the ascending aorta are normal. LEFT CORONARY ARTERY: LEFT MAIN TRUNK: The left main trunk has a high posterior takeoff and is very short and the LAD and circumflex arteries essentially share a single ostium. There is no significant stenosis in the left main coronary artery. LEFT ANTERIOR DESCENDING ARTERY: The LAD is a large caliber vessel, which courses around the apex. The LAD gives rise to a diagonal branch, which bifurcates as a moderate-sized vessel. There are moderate luminal irregularities throughout the LAD. There are 2 stents in the proximal segment prior to the diagonal and major septal perforating branch. There is some mild in-stent restenosis up to 20-25% seen in these stents. Following that, there is an area of 45-50% stenosis in the proximal LAD just prior to the major diagonal branch. There is an additional stent in the mid segment, which has some mild diffuse restenosis of 20-25% throughout. The remainder of the mid and distal LAD have mild to moderate luminal irregularities. Diagonal branch is large in caliber and gives rise to a superior and inferior subdivision. There is a 50% ostial and proximal stenosis. CIRCUMFLEX: The main circumflex is nondominant gives rise to a posterolateral branch. Normal. RIGHT CORONARY ARTERY: Dominant. The right coronary artery gives rise to a right ventricular marginal branch, posterior descending branch, and 2 posterior ventricular branches. The right coronary artery and its branches are normal. DIAGNOSES: 1. Moderate single vessel coronary atherosclerosis. 2. Continued success greater than 10 years status post multiple stent implants to the proximal and mid left anterior descending. 3. Normal left ventricular function. COMMENT/RECOMMENDATIONS: Angiographically, this patient does not demonstrate any hemodynamically significant epicardial coronary disease. She will be treated medically with continued risk factor modification, exercise and medication optimization. I will attempt to ambulate her later this evening and discharge her to home if ambulatory and stable. MD KELSEY Aragon/daisy , 03:51 PM , 04:05 PM
--- NOTE | 2018-08-02 18:55 | P.DS ---
Date of admission: 07/30/18 21:06 Primary care physician: Lloyd Dutta MD Attending physician on discharge: Melvin Dash Anticipated date of discharge: 07/31/18 Brief History from admission: This is a 57-year-old female with a PMH of HTN, Hyperlipidemia, CAD s/p Stent x3 and DM who presented to the ER w/ complaints of chest pain and palpitations starting earlier today. Chest pain is dull, describes it as a "discomfort", moderate, w/ radiation to shoulders. Follows w/ Dr. Henao as outpatient, has Nuclear Stress q2 yrs, states last stress in 2017 normal. On arrival, BP 119/56, HR 105, O2 sat 100% on RA, Afebrile. WBC 18.4, repeat 16. D-dimer negative. Creatinine 1.12. BS 355. Troponin negative. UA negative. CXR with no acute findings. CT Head negative. CTA Chest negative. CTA Neck atherosclerotic plaque of the carotid bifurcations, mild on the right trace on the left, no significant narrowing. While in ER, pt w/ episode of nausea/ vomiting and persistent tachycardia, HR 120's. Chest pain currently improved. DS: Diagnosis - Discharge Diagnosis (1) Chest pain Status: Resolved (2) Tachycardia Status: Resolved (3) Renal insufficiency Status: Resolved (4) Leukocytosis Status: Resolved (5) DM (diabetes mellitus) Status: Chronic (6) Coronary artery disease Status: Chronic (7) Hx of heart artery stent Status: Chronic DS: Summary Hospital Course: 57-year-old female with a PMH of HTN, Hyperlipidemia, CAD s/p Stent x3 and DM who presented to the ER w/ complaints of chest pain and palpitations. Serial troponin done, trending upwards. Cardiology evaluated, recommended cardiac cath. CTA of the chest negative. CTA neck with mild plaque. Was continue on aspirin, beta-alejandra and Lipitor. Nitroglycerin as needed. She had resolution of chest pain. Was found tachycardic, this resolved. She had IV fluids in the emergency room. TSH was okay. Echo was done, EF 55-60%. Also found with leukocytosis, no evidence of infection, likely secondary to tachycardia and chest pain. Patient was noted with renal insufficiency, creatinine 1.112, was given IV fluids. Creatinine stabilized. Cardiology recommended cardiac cath, patient underwent catheterization on 08/02/2018. No significant coronary artery disease found. Medical management recommended, Lipitor was increased to 80 mg daily and she was put on Plavix. Patient was cleared for discharge by cardiology. Patient was discharged home in stable condition - Time Spent with Patient Total time spent providing and/or coordinating discharge services: Less than 30 minutes - Quality: VTE Deep Vein Thrombosis/Pulmonary Embolism Present on Admission: No Exam Vital signs: Vital Signs 08/01/18 20:00 08/02/18 00:00 08/02/18 04:00 Temperature 98.0 F 97.8 F 97.8 F Pulse Rate 95 H 53 L 59 L Respiratory Rate 18 16 15 Blood Pressure 161/76 H 121/65 130/69 Pulse Oximetry 95 98 97 08/02/18 08:00 08/02/18 11:23 08/02/18 16:02 Temperature 98 F 98.5 F Pulse Rate 54 L 57 L Respiratory Rate 16 18 Blood Pressure 141/65 H 137/65 Pulse Oximetry 97 94 L 95 Intake & Output 08/01/18 08/02/18 08/02/18 18:59 06:59 18:59 Intake Total 245 / 245 Balance 205 205 245 / 245 Intake: IV 5 / 5 Heparin/NS PF Inj 1,500 ML @ 0 5 / 5 mls/hr .ROUTE .STK-MED ONE Rx#: [id number] NS Inj 1,000 ML @ 100 mls/hr IV / .CONT .Q10H [facility] Rx#:[id number] Oral 240 / 240 Other: # Voids 10 2 Date of Last Bowel Movement 07/31/18 07/31/18 Results Procedures completed during hospitalization: 08/02/2018-cardiac catheterization Labs on day of discharge: Labs from last 24 hours 08/02/18 08/02/18 08/02/18 18:08 03:40 03:40 WBC RBC Hgb Hct MCV MCH MCHC RDW Plt Count MPV Neut % (Auto) Lymph % (Auto) [place] % (Auto) Eos % (Auto) Baso % (Auto) Neut # (Auto) Lymph # (Auto) [place] # (Auto) Eos # (Auto) Baso # (Auto) WBC Differential Differential Comment PT 10.4 INR 1.0 APTT 26.6 Sodium 147 H Potassium 3.9 Chloride 111 H Carbon Dioxide 28.9 Anion Gap 7 BUN 17 Creatinine 0.81 Estimated GFR 73 L POC Glucose 164 H Random Glucose 107 H Calcium 8.0 L Beta HCG, Quant 2 08/02/18 08/01/18 03:40 22:12 WBC 5.1 RBC 4.22 Hgb 12.3 Hct 36.1 MCV 85.6 MCH 29.3 MCHC 34.2 RDW 13.5 Plt Count 133 L MPV 9.9 Neut % (Auto) 45.2 Lymph % (Auto) 42.8 [place] % (Auto) 8.5 H Eos % (Auto) 3.1 Baso % (Auto) 0.4 Neut # (Auto) 2.3 Lymph # (Auto) 2.2 [place] # (Auto) 0.4 Eos # (Auto) 0.2 Baso # (Auto) 0.0 WBC Differential . Differential Comment Auto diff final PT INR APTT Sodium Potassium Chloride Carbon Dioxide Anion Gap BUN Creatinine Estimated GFR POC Glucose 130 H Random Glucose Calcium Beta HCG, Quant - Impressions ITS Impressions Chest X-Ray 07/30/18 14:09 CONCLUSION: 1. No acute cardiopulmonary disease. Head CT 07/30/18 16:45 CONCLUSION: 1. Negative CT Head non contrast. 2. No evidence of acute infarct, hemorrhage, mass or edema. . Chest CTA 07/30/18 19:02 CONCLUSION: Unremarkable study. Neck CTA 07/30/18 19:02 CONCLUSION: 1. Focal atherosclerotic plaque of the carotid bifurcations, mild on the right and trace on the left. No hemodynamically significant narrowing. 2. No dissection. Discharge Plan - Discharge Disposition Patient Disposition: 01 Discharge Home - Discharge Condition Condition: Stable - Discharge Order Discharge Orders: Discharge Order (Routine); Ordered 08/02/18 Ordered By: Valdez Barrera - Discharge Details Anticipated Discharge Date: 08/02/18 - Physicians Team Primary Care Provider: Lloyd Dutta Attending Provider: Melvin Dash Other Providers: Vangie Thomas MD ; Valdez Barrera MD
[2018-08-02] MEDS ORDERED: Iohexol 350 MG/ML 100 ML Vial (for Cath Lab) IVCONTRAST ONE (21:07)
[2018-08-02] MEDS ORDERED: Iohexol 350 MG/ML 50 ML Vial (for Cath Lab) IVCONTRAST ONE (21:07)
== END 2018-08-02 20:10 | disposition home or self-care (01) ==
LOC: NEPC 13:29 → NEDA 13:29 → NEPHCDU 23:18 → HCIS 08-02 14:22
PROVIDERS: ADMIT Family Medicine; ATTEND Family Medicine